=== PATIENT | female | born 1960 | race Caucasian/White ===

== ENCOUNTER 2017-03-03 23:37 | Inpatient (IN) ==
[2017-03-03] MEDS ORDERED: NS 2,000 ML ONE (23:49)
[2017-03-03] MEDS ORDERED: ASPIRIN PO STA (23:54)
[2017-03-03] MEDS ORDERED: ASPIRIN ONE (23:56)
[2017-03-03] MEDS ORDERED: NS 1,000 ML IV ONE (23:56)
[2017-03-04 00:05] LABS: MANUAL DIFF NEEDED? NO
[2017-03-04 00:11] LABS: BASO% 0.2 % (0.0-0.8); EOS# 0.11 X1000 (0.0-0.7); EOS% 0.8 % (0.0-10.0); HEMATOCRIT 39.5 % (37.0-47.0); HEMOGLOBIN 13.1 g/dL (12.0-16.0); IMM GRAN# 0.04 X1000 (0.0-0.04); IMM GRAN% 0.3 % (0.0-0.5); LYMPH# 2.52 X1000 (1.2-3.4); LYMPH% 19.3 % (20.5-51.1); MCH 27.3 PG (27-31); MCHC 33.2 g/dL (33-37); MCV 82.3 FL (81-99); MONO# 0.87 X1000 (0.11-0.59); MONO% 6.7 % (1.7-9.3); MPV 10.4 FL (7.4-10.4); NEUT% 72.7 % (42.2-75.2); PLT 408 X1000 (130-400)
[2017-03-04 00:29] LABS: AGAP 14; ALBUMIN 3.9 g/dL (3.5-5.0); ALKALINE PHOSPHATASE 66 U/L (32-104); BUN 21 mg/dL (8-22); CALCIUM 9.3 mg/dL (8.8-10.2); CHLORIDE 100 mmol/L (98-107); CK PROFILE 36 U/L (24-173); COSMO 277; GOT 21 U/L (10-30); GPT 13 U/L (10-36); INR 1.05 (0.86-1.15); MAGNESIUM 2.1 mg/dL (1.5-2.7); POTASSIUM 3.2 mmol/L (3.5-5.1); SODIUM 136 mmol/L (136-145); TCO2 22 mmol/L (25-35); TOTAL PROTEIN 6.8 g/dL (6.3-8.3)
[2017-03-04 00:30] LABS: PTT PL 30.6 Seconds (22.6-43.9)
--- NOTE | 2017-03-04 01:21 | EKG Report ---
Test Performed on : 03/03/2017 11:52:51 PM Test Reason : CHEST PAIN Blood Pressure : / mmHG Vent. Rate : 087 BPM Atrial Rate : 087 BPM P-R Int : 132 ms QRS Dur : 112 ms QT Int : 410 ms P-R-T Axes : 054 -29 042 degrees QTc Int : 493 ms Normal sinus rhythm. Minimal voltage criteria for LVH, may be normal variant Prolonged QT Abnormal ECG When compared with ECG of 03-MAR-2017 23:43, (Unconfirmed) No significant change was found Unconfirmed Result
--- NOTE | 2017-03-04 01:21 | EKG Report ---
Test Performed on : 03/03/2017 11:43:17 PM Test Reason : chest pain Blood Pressure : / mmHG Vent. Rate : 083 BPM Atrial Rate : 083 BPM P-R Int : 134 ms QRS Dur : 110 ms QT Int : 412 ms P-R-T Axes : 047 -35 016 degrees QTc Int : 484 ms Normal sinus rhythm. Left axis deviation Voltage criteria for left ventricular hypertrophy Cannot rule out Inferior infarct , age undetermined Abnormal ECG No previous ECGs available Unconfirmed Result
--- NOTE | 2017-03-04 04:47 | EKG Report ---
Test Performed on : 03/04/2017 01:58:35 AM Test Reason : chest pain Blood Pressure : / mmHG Vent. Rate : 081 BPM Atrial Rate : 081 BPM P-R Int : 144 ms QRS Dur : 118 ms QT Int : 418 ms P-R-T Axes : 054 -25 032 degrees QTc Int : 485 ms Sinus rhythm. with occasional premature ventricular complexes. Left ventricular hypertrophy with QRS widening Prolonged QT Abnormal ECG When compared with ECG of 03-MAR-2017 23:52, (Unconfirmed) premature ventricular complexes. are now present Unconfirmed Result
--- NOTE | 2017-03-04 06:14 | EKG Report ---
Test Performed on : 03/04/2017 05:48:04 AM Test Reason : chest pain Blood Pressure : / mmHG Vent. Rate : 079 BPM Atrial Rate : 079 BPM P-R Int : 142 ms QRS Dur : 118 ms QT Int : 424 ms P-R-T Axes : 049 -29 018 degrees QTc Int : 486 ms Normal sinus rhythm. Left ventricular hypertrophy with QRS widening Prolonged QT Abnormal ECG When compared with ECG of 04-MAR-2017 01:58, (Unconfirmed) premature ventricular complexes. are no longer present Unconfirmed Result
[2017-03-04] MEDS ORDERED: NS 1,000 ML IV ONE (06:16)
--- NOTE | 2017-03-04 09:06 | Diag Imaging Result Document ---
PROCEDURE NAME: CHEST-PORTABLE - 03/03/2017 AP PORTABLE CHEST, 03/04/2017 AT 1208 HOURS: FINDINGS: The inspiration is less optimal than on 03/06/2016. Otherwise, there has been no significant change. IMPRESSION: Stable chest.
[2017-03-04] MEDS ORDERED: LEXISCAN ONE (15:24)
--- NOTE | 2017-03-04 16:21 | HISTORY AND PHYSICAL ---
CHIEF COMPLAINT: Epigastric pain radiating to her back. BRIEFLY: This is a 56-year-old female who was in her usual state of health and developed sudden onset discomfort mostly in her right chest and right upper quadrant. She was evaluated in the ER. She also had some transient hypotension. Initial blood pressures were in the 60s when she 1st got to the ER which was right before midnight. She had an episode of syncope. She could not keep herself up. Her abdominal discomfort was associated with nausea and vomiting. She had some loose stools yesterday as well. Her blood pressure improved with IV fluids and has sustained it. She has had a cardiac workup including a stress test and chest CT. 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 Currently chest pain-free. The patient's pain was described as sharp, right side of the chest, nonradiating. PAST MEDICAL HISTORY: 1. Asthma. 2. Hypertension. 3. Arthritis. 4. Glaucoma. 5. 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 PAST SURGICAL HISTORY: 1. Hysterectomy. 2. Tonsillectomy. 3. Cholecystectomy. 4. Lung biopsy. 5. Skin grafts. SOCIAL HISTORY: No tobacco or ethanol. FAMILY: Positive for brother and father with cardiac disease but no CAD. It sounded like more it was atrial fibrillation. ALLERGIES: Azithromycin. MEDICATION: List is being compiled but she is just really on Wellbutrin and glaucoma treatment. REVIEW OF SYSTEMS: Reviewed x10 systems and is otherwise negative. PHYSICAL EXAMINATION: VITAL SIGNS: Blood pressure was 108/90, heart rate 82, respiratory rate 22, temperature 98.6 degrees, 97% on 2 L. GENERAL: A well-developed female, in no acute distress. HEAD: Normocephalic, atraumatic. EYES: Pupils equal, round, reactive to light. Extraocular movements were intact. EAR/NOSE/THROAT: Moist mucous membranes. NECK: Supple. CARDIOVASCULAR EXAM: Regular rate and rhythm. No murmurs, gallops, or rubs. PULMONARY: Bilateral breath sounds. Clear to auscultation. GI: Soft, nontender, nondistended. Bowel sounds are positive. EXTREMITIES: No clubbing or cyanosis. LYMPHATICS: No peripheral edema. NEUROLOGICAL: Nonfocal. LABORATORY DATA: White count 13. Potassium 3.2. Two troponins were negative. The patient is stabilized. Laboratory data: White count normal. PROBLEM LIST: Chest pain. This 56-year-old female presenting with syncope, hypotension and chest pain. 1. Hypotension. May have been related to a nausea vomiting episode, dehydration, possible vasovagal. She is in the process of getting a syncope workup. Her blood pressure is stabilized with hydration. We will continue to monitor. 2. Chest pain is atypical. She has had a chest CT. D-dimer was actually negative, 2 troponins were negative. Stress test is pending. We will continue to follow and CT of the thorax, I am waiting on the final report, showed some ectasia of her aorta but no dissection or significant aneurysm or other pathology. We will pursue an echo as part of her syncope, hypotension workup and observe for the next 24 hours. 3. Hypokalemia. Will supplement and follow. 4. Disposition pending multiple other issues. cc: Sae Marquez MD
[2017-03-04] MEDS: NS 1,000 ML IV SCH (16:42)
[2017-03-04] MEDS ORDERED: POTASSIUM CHLORIDE 20 MEQ/SWI 20 MEQ/100 ML IVPB IV SCH (16:45)
[2017-03-04] MEDS ORDERED: TYLENOL PO PRN (17:24)
[2017-03-04] MEDS ORDERED: ZOFRAN IV PRN (18:52)
[2017-03-04] MEDS ORDERED: KLOR-CON PO ONE (19:03)
[2017-03-04] MEDS: PRED FORTE 1% OPH SUSPENSION BOTH EYES SCH ×2 (20:09→20:20)
[2017-03-04 21:32] LABS: BILIRUBIN URINE NEGATIVE (NEGATIVE); CLARITY CLEAR (CLEAR); COLOR YELLOW; GLUCOSE URINE NEGATIVE (NEGATIVE); SP GRAVITY URINE 1.015; URINE EPITHELIAL CELLS <10 /HPF (<10); URINE SOURCE CLEAN CATCH; URINE WBC <10 /HPF (<10)
[2017-03-04 21:33] LABS: BLOOD URINE 3+ (NEGATIVE); LEUKOCYTES URINE TRACE (NEGATIVE); NITRITE URINE NEGATIVE (NEGATIVE); PROTEIN URINE TRACE mg/dL (NEGATIVE); URINE CULTURE PL NEEDED? YES; UROBILINOGEN URINE NORMAL
[2017-03-05] MEDS: NS 1,000 ML IV SCH ×4 (00:10→23:38)
[2017-03-05 06:33] LABS: HEMATOCRIT 38.2 % (37.0-47.0); HEMOGLOBIN 12.3 g/dL (12.0-16.0); MCH 27.4 PG (27-31); MCHC 32.2 g/dL (33-37); MCV 85.1 FL (81-99); MPV 10.7 FL (7.4-10.4); RBC 4.49 XMIL (4.2-5.4)
[2017-03-05 07:16] LABS: AGAP 9; BUN 14 mg/dL (8-22); CALCIUM 8.5 mg/dL (8.8-10.2); CHLORIDE 110 mmol/L (98-107); COSMO 284; MAGNESIUM 2.2 mg/dL (1.5-2.7); POTASSIUM 3.7 mmol/L (3.5-5.1); SODIUM 143 mmol/L (136-145); TCO2 24 mmol/L (25-35)
[2017-03-05] MEDS: PRED FORTE 1% OPH SUSPENSION BOTH EYES SCH ×4 (08:39→23:37)
--- NOTE | 2017-03-05 08:56 | Diag Imaging Result Document ---
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 There is no evidence of dissection, however. There are calcified right paratracheal nodes. There is calcification in the right hilum as well. There is, otherwise, no evidence of significant adenopathy. There are no abnormal fluid collections. There is atelectasis or fibrosis present in the left costophrenic sulcus. There is a similar appearance anterolaterally in the right lower lobe. Postsurgical changes are present in the posterior right hemithorax. There is no evidence of pneumothorax. There are granulomata in the spleen. There is a splenule near the splenic hilus. IMPRESSION: Postsurgical and fibrotic changes as described. Granulomatous changes. 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
[2017-03-05] MEDS: WELLBUTRIN XL PO SCH ×2 (08:57→20:25)
[2017-03-05] MEDS ORDERED: MIRALAX PO ONE (08:58)
[2017-03-05] MEDS ORDERED: LACTULOSE PO PRN (12:38)
[2017-03-05] MEDS ORDERED: SODIUM CHLORIDE 0.9% INJ SCH (12:45)
[2017-03-05] MEDS ORDERED: PROTONIX IV SCH (12:45)
[2017-03-05] MEDS: CARAFATE LIQUID PO SCH ×2 (13:13→20:25)
[2017-03-05] MEDS: MIRALAX PO SCH (13:14)
--- NOTE | 2017-03-05 13:17 | PROGRESS NOTE ---
DATE: 03/05/2017 SUBJECTIVE: Ms. George got admitted yesterday because of acute onset of epigastric pain associated with nausea and vomiting. According to Ms. George the pain was severe, was about 8/10, was intermittent, and was sometimes squeezing in her epigastrium which radiated to both rib cages. When she presented to the emergency department she was hypotensive. She was given IV fluid resuscitation. Blood pressure is now normal. OBJECTIVE: Vital signs: Blood pressure is 141/70, pulse of 79, respiration is 16, temperature is 98.2 degrees. General: Ms. George is a 56-year-old female. She was in bed. She did not seem to be in any distress. HEENT: Mucosa is pink and moist. Anicteric. Acyanotic. Neck: Supple. Chest: Clear. Cardiovascular: Regular rate and rhythm. Abdomen: Soft. Mildly tender in the epigastrium. Bowel sounds are present. 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 There is no focal neurological deficit. LABORATORY DATA: CBC is reviewed and completely normal. Chemistry: Sodium is 143, potassium is 3.7, chloride is 110, bicarb is 24. TSH is 1.51. CT scan of the chest which was done yesterday showed postsurgical and fibrotic changes as described. Granulomatous changes. Mild ectasia of the ascending aorta without evidence of dissection. Multiple EKGs have been done and show no ST-segment changes. Troponins have all been negative 3 times. The patient has had a stress test done. We are still pending the official report on that. ASSESSMENT: 1. Transient hypotension. This has been resolved. We think it is related to volume depletion from nausea and vomiting. 2. Epigastric pain. This seems atypical for a female patient. A stress test has been done. We are still pending the official report. I think this is probably related more to a GI pathology. We will therefore start the patient on PPI and Carafate and I will advise her to follow up with GI on an outpatient basis to rule out the possibility of an underlying ulcer. 3. Constipation. This was seen a little bit on the CT of the chest in the upper part of the abdomen. We will do echo KUB to have a better idea and we will also give the patient symptomatic management for the constipation. PLAN: So in general I think Ms. George is doing fine. We are going to continue with the hydration today. Will give her some bowel prep medication to get the bowels moving. Will are pending the Lexiscan results. Hopefully we will get her out tomorrow first thing in the morning. cc: Feliberto Murphy MD
--- NOTE | 2017-03-05 13:35 | Diag Imaging Result Document ---
PROCEDURE NAME: CARTER ABDOMEN - 03/05/2017 ABDOMEN SUPINE 2 VIEWS: FINDINGS: No free air beneath the diaphragm. No organomegaly. No bowel obstruction. No abnormal abdominal calcifications. Mild scoliosis with degenerative spine changes. IMPRESSION: No acute abnormality although there is minimal constipation.
--- NOTE | 2017-03-05 13:41 | Diag Imaging Result Document ---
PROCEDURE NAME: MYOCARDIAL PERF SCAN, STR/REST - 03/04/2017 PROCEDURE: Lexiscan Cardiolite stress test. Lexiscan was done per Dr. Centeno. Stress electrocardiogram was negative for ischemia. Please see detailed stress report dictated separately. 14.6 mCi of Cardiolite was injected for the rest phase; 45 millicuries of Cardiolite was injected for the stress phase. Gated SPECT images were obtained in standard views. Images revealed significant breast or chest wall attenuation. There is low to moderate sized fixed defect in the left ventricular apex with normal wall motion. This could represent attenuation defect. Low probability of scar. Would recommend clinical correlation. There is no evidence of ischemia. CONCLUSIONS: 1. No evidence of ischemia. 2. There is small to moderate size, fixed defect in the left ventricular apex with normal wall motion. This is likely to represent attenuation defect. Low probability of scar. There is no ischemia. 3. Left ventricular ejection fraction 62%. Wall motion was normal. cc: MD Dillan Ramirez MD
[2017-03-05] MEDS: TYLENOL PO PRN ×2 (14:05→21:28)
--- NOTE | 2017-03-05 17:22 | ECHO REPORT ---
ORDER DATE: 03/05/2017 ECHOCARDIOGRAPHIC MEASUREMENTS: 1. Interventricular septum 0.8. 2. Left ventricular posterior wall 0.8. 3. Diastolic diameter 5. 4. Left atrium 3.9. 5. Aorta 3.4. SUMMARY OF 2-DIMENSIONAL IMAGIN. Aortic valve leaflets are trileaflet. Pulmonic valve was normal. Tricuspid valve was normal. Mitral valve was normal. 2. Normal left ventricular cavity size. Estimated ejection fraction of 60%. 3. Peak velocity across the aortic valve less than 2 m/sec. There is no aortic stenosis. There is trace aortic regurgitation. There is mild mitral regurgitation. Mild tricuspid regurgitation. Peak velocity across the tricuspid valve was 3.1 m/sec. Pulmonary artery systolic pressure of 48 mmHg. 4. There is no pericardial effusion or obvious intracardiac mass or thrombus seen. cc: MD Sae Ramirez MD
[2017-03-06] MEDS: CARAFATE LIQUID PO SCH ×2 (03:33→08:29)
[2017-03-06] MEDS: TYLENOL PO PRN ×2 (04:56→11:00)
[2017-03-06] MEDS: NS 1,000 ML IV SCH (07:56)
[2017-03-06 08:29] VITALS: BP 145/71
[2017-03-06] MEDS: MIRALAX PO SCH (08:29)
[2017-03-06] MEDS: WELLBUTRIN XL PO SCH (08:29)
[2017-03-06] MEDS: PRED FORTE 1% OPH SUSPENSION BOTH EYES SCH (08:31)
[2017-03-06] MEDS ORDERED: CARAFATE PO SCH (11:00)
--- NOTE | 2017-03-06 15:14 | DISCHARGE SUMMARY ---
ADMISSION DATE: 03/04/2017 DISCHARGE DATE: 03/06/2017 ADMISSION DIAGNOSES: 1. Hypotension. 2. Chest pain that was atypical. 3. Hypokalemia. DISCHARGE DIAGNOSES: 1. Transient hypotension, resolved. 2. Chest pain resolved. 3. Constipation. 4. Hypokalemia resolved. SUMMARY OF FINDINGS: This is a 56-year-old female who began having a sudden onset of discomfort in the right side of her chest and right upper quadrant. She was evaluated in the ER and was noted to have some transient hypotension, initial blood pressures were in the 60s when she 1st got to the ER and that was right before midnight on the day of arrival. She had an episode of syncope, had abdominal discomfort associated with nausea, vomiting and had some loose stool. Her blood pressure improved with IV fluids, and sustained. She had a myocardial perfusion scan that showed no evidence of ischemia. There was a small to moderate sized fixed defect in the left ventricle apex with normal wall motion that likely represents attenuation defect and low probability of scar, no ischemia and the left ventricular ejection fraction was 62% with normal wall motion. She had a CT of the chest that showed post surgical and fibrotic changes. Granulomatous changes and mild ectasias of the ascending thoracic aorta without evidence of dissection. She had an abdomen x-ray on 03/05/2017 that showed no acute abnormality except for minimal constipation. Her blood pressures resolved and this morning was noted to be 145/71, which has been her baseline since 03/04/2017 around 8 p.m. so it is felt that she can safely be discharged home today. DISCHARGE MEDICATIONS: Alphagan 0.2% ophthalmic solution to the right eyes, Wellbutrin 150 mg p.o. b.i.d., Cosopt ophthalmic solution, one drop to both eyes. Lactulose 30 mL p.o. daily p.r.n. Ilevro 1.7 mL to both eyes at bedtime, Prilosec 20 mg p.o. daily. PredForte 1% ophthalmic suspension 1 drop to both eyes 4 times a day and Carafate 1 g p.o. t.i.d. #90 with no refills. DISCHARGE INSTRUCTIONS: She was given the information for the [facility], the physician referral line to establish with a new primary care physician and she will also need to follow up with Dr. Dominguez from GI. All discharge instructions were reviewed with the patient and she verbalized understanding. TIME SPENT: Thirty-five minutes. Dictated by BLANKA Mitchell for Feliberto Murphy MD cc: BLANKA Mitchell MD
[2017-03-06] MEDS ORDERED: PATIENT'S OWN MED BOTH EYES SCH (21:00)
[2017-03-07] MEDS ORDERED: PRILOSEC PO SCH (07:00)
--- NOTE | 2017-03-19 18:12 | PROVIDER DOCUMENTATION ---
This chart was entered by Yulisa Fenton Scribe, acting as scribe for Dillan Centeno MD. HPI-Chest Pain <Jose Daniel Owen X - Last Filed: 03/04/17 07:43> - General Source: patient - History of Present Illness-CP Location: reports: substernal Chest Pain Radiation: reports: back Quality of Pain: reports: sharp, stabbing Severity in ED: moderate Onset/Duration: this evening Timing: still present Context/Activities at Onset: reports: none Modifying Factors: improves with: nothing Associated Symptoms: reports: diaphoresis, nausea, shortness of breath, vomiting Aspirin Treatment Today: 325 mg x 1, provided by ED Similar Symptoms Previously?: No Recently Seen Here or By Another Healthcare Provider: No <Dillan Centeno - Last Filed: 03/19/17 18:12> - General Chief Complaint: Chest Pain Stated Complaint: CHEST PAIN/SLURRED SPEECH Time Seen by Provider: 03/03/17 23:40 Allergies/Adverse Reactions: Patient Allergies Allergy/AdvReac Type Severity Reaction Status Date / Time azithromycin Allergy RASH Verified 03/18/17 19:45 Home Medications: Home Medication List Medication Instructions Recorded Confirmed Last Taken Type Bupropion X.l. [Wellbutrin Xl] 150 mg PO BID 09/24/16 03/04/17 03/03/17 17:00 History Brimonidine 0.2% Ophth Soln 1 drop RIGHT EYE 03/04/17 03/04/17 History [Alphagan 0.2% Ophth Soln] Dorzolamide/Timolol Ophth Soln 1 drop BOTH EYES 03/04/17 03/04/17 History [Cosopt Ophth Soln] Nepafenac [Ilevro] 1.7 ml BOTH EYES QHS 03/04/17 03/04/17 03/04/17 15:59 History Prednisolone 1% Oph Susp [Pred 1 drop BOTH EYES 4XDAY 03/04/17 03/04/17 History Forte 1% Oph Suspension] Lactulose 30 ml PO DAILY PRN PRN #1 udc 03/06/17 Unknown Rx Omeprazole [Prilosec] 20 mg PO DAILY@0700 #60 capsule 03/06/17 Unknown Rx Sucralfate [Carafate] 1 gm PO TID #90 tablet 03/06/17 Unknown Rx Tramadol [Ultram] 50 mg PO Q6H PRN PRN #14 tablet 03/18/17 Unknown Rx - History of Present Illness-CP Nature of Presenting Problem: 56 year old F presents to the ED with a cc of nausea, vomiting(multiple), and diarrhea(x1) with an onset of 1700. 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 Pt states that pain is intermittent and pt states that she is short of breath and diaphoretic when the pain starts. Pt states that she is still nauseated (Yulisa Fenton) 56 year old F presents to the ED with a cc of nausea, vomiting(multiple), and diarrhea(x1) with an onset of 1700. 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 Pt states that pain is intermittent and pt states that she is short of breath and diaphoretic when the pain starts. Pt states that she is still nauseated (Dillan Centeno) Review of Systems - Adult - REVIEW OF SYSTEMS - ADULT Constitutional: reports: no symptoms reported <Jose Daniel Owen - Last Filed: 03/04/17 07:43> - REVIEW OF SYSTEMS - ADULT Constitutional: denies: chills, fever Eyes: reports: no symptoms reported Ears, Nose, Mouth & Throat: reports: no symptoms reported Cardiovascular: reports: chest pain. denies: palpitations Respiratory: reports: shortness of breath. denies: cough Gastrointestinal: reports: diarrhea, nausea, vomiting Genitourinary: reports: no symptoms reported Musculoskeletal: reports: no symptoms reported Integumentary: reports: no symptoms reported Neurological: reports: no symptoms reported Psychiatric: reports: no symptoms reported Endocrine: reports: no symptoms reported Hematologic/Lymphatic: reports: no symptoms reported Allergic/Immunologic: reports: no symptoms reported All Other Systems: Reviewed and Negative <Dillan Centeno - Last Filed: 03/19/17 18:12> Past History - Adult - PAST MEDICAL HISTORY-ADULT Review of Records: reports: Nursing Assessment Review, Medications Reviewed Major Childhood Illnesses: reports: denies history Cardiovascular: reports: HTN Respiratory: reports: denies history Gastrointestinal: reports: denies history Obstetrical/Gynecological: reports: denies history Genitourinary: reports: denies history Musculoskeletal: reports: denies history Neurological: reports: denies history Endocrine/Immune: reports: denies history Other Conditions: reports: cataract/glaucoma - PRIOR SURGERIES/PROCEDURES Surgical/Procedure History: reports: other (retinal sx right eye) - IMMUNIZATION STATUS Childhood Immunizations: See Nurse Assessment Flu Vaccine: See Nurse Assessment - FAMILY HISTORY Family History: reviewed, not pertinent - SOCIAL HISTORY Smoking: non-smoker Substance Use: none/never Alcohol Use Frequency: occasionally <Dillan Centeno - Last Filed: 03/19/17 18:12> Physical Exam-General - PHYSICAL EXAM-ADULT Initial Vital Signs Reviewed: Yes - CONSTITUTIONAL General Appearance: alert, mild distress - NECK Neck: negative: carotid bruit - RESPIRATORY Respiratory: chest non-tender, lungs clear, normal breath sounds - CARDIOVASCULAR Cardiovascular: normal peripheral pulses, regular rate, rhythm, no edema - GASTROINTESTINAL (ABDOMEN) Abdominal Exam: non tender, soft - MUSCULOSKELETAL Extremity: normal inspection, no pedal edema - SKIN Integumentary: normal color, normal turgor, warm/dry - PSYCHIATRIC Psych/Mental Status: normal mood/affect, normal thought content, normal thought process, oriented x 3 <Dillan Centeno - Last Filed: 03/19/17 18:12> Progress - PLAN OF CARE/RESULTS Result Diagrams: 03/03/17 23:58 03/03/17 23:58 - CONSULTS/PCP/HOSPITALIST Notification Time Discussed: 07:43 Reason/Comments: Admit to Dr. Murphy Consult Disposition: Admit <BraydenJose Daniel Watkins - Last Filed: 03/04/17 07:43> - PLAN OF CARE/RESULTS Result Diagrams: 03/05/17 05:15 03/05/17 05:15 - EKG 1 Time of EKG reading by physician:: 23:55 EKG Read and Signed by:: Dillan Centeno EKG Interpretation (*Must complete 3 of following elements*): Abnormal Rate: 83 Rhythm: sinus [place]: left QRS: LVH LA Interval: normal ST Wave: normal 2 Time of EKG reading by physician:: 23:55 EKG Read and Signed by:: Dillan Centeno EKG Interpretation (*Must complete 3 of following elements*): Abnormal Rate: 87 Rhythm: sinus [place]: normal QRS: LVH LA Interval: normal ST Wave: normal Prior EKG Comparison: unchanged from prior 3 Time of EKG reading by physician:: 02:05 EKG Read and Signed by:: Dillan Centeno EKG Interpretation (*Must complete 3 of following elements*): Abnormal Rate: 81 Rhythm: sinus [place]: left QRS: LVH LA Interval: normal ST Wave: normal Prior EKG Comparison: unchanged from prior 4 Time of EKG reading by physician:: 05:55 EKG Read and Signed by:: Dillan Centeno EKG Interpretation (*Must complete 3 of following elements*): Abnormal Rate: 79 Rhythm: sinus [place]: left QRS: LVH LA Interval: normal ST Wave: normal Prior EKG Comparison: unchanged from prior - XRAY 1 XRAY Study: Chest Impression: Abnormal (missing rib on right old poor inspiration) <Dillan Centeno - Last Filed: 03/19/17 18:12> - PLAN OF CARE/RESULTS Progress/Plan/Lab Results: Orders Category Date Time Status Admit - [facility] Routine AdmDCTranf 03/04/17 06:16 Ordered Activity - Up Ad Delma ORDERED Care 03/04/17 06:16 Active Call Admitting on Arrival AT ADMISSION Care 03/04/17 07:44 Active Cardiac Monitoring DIRECTED Care 03/03/17 23:54 Completed Oxygen Therapy- ED Nursing DIRECTED Care 03/03/17 23:54 Active Vital Signs Order Q 8-HR .ASSESS Care 03/04/17 06:16 Active Heart Healthy Diet Diet 03/04/17 13:32 Completed CHEST-PORTABLE [RAD] Stat Exams 03/03/17 23:[address] THORAX W/CONTRAST [CT] Stat Exams 03/04/17 10:30 Completed Odalis [MYOCARDIAL PERF SCAN, STR/REST] [NM] Stat Exams 03/04/17 06:19 Completed BASIC METABOLIC PANEL [CHEM] Routine Lab 03/05/17 05:15 Completed CBC WITH ELECTRONIC DIFF [HEME] Stat Lab 03/03/17 23:58 Completed CBC WITH NO DIFF [HEME] Routine Lab 03/05/17 05:15 Completed CK PROFILE [SP CHEM] Stat Lab 03/03/17 23:58 Completed CK PROFILE [SP CHEM] Stat Lab 03/04/17 02:10 Completed CK PROFILE [SP CHEM] Stat Lab 03/04/17 05:55 Completed COMPREHENSIVE METABOLIC PANEL [CHEM] Stat Lab 03/03/17 23:[address] D-D[address]ER PL [COAG] Stat Lab 03/03/17 23:[address]-D[address] [COAG] Stat Lab 03/04/17 01:09 Completed MAGNESIUM [CHEM] Routine Lab 03/05/17 05:15 Completed MAGNESIUM [CHEM] Stat Lab 03/03/17 23:58 Completed PRO B-NATRIURETIC PEPTIDE Stat Lab 03/03/17 23:58 Completed PROTIME WITH INR PL [COAG] Stat Lab 03/03/17 23:[address] [COAG] Stat Lab 03/03/17 23:58 Completed TROPONIN T Stat Lab 03/03/17 23:58 Completed TROPONIN T Stat Lab 03/04/17 02:10 Completed TROPONIN T Stat Lab 03/04/17 05:55 Completed TSH Routine Lab 03/05/17 05:15 Completed 0.9% Sodium Chloride Inj [Ns] 1,000 ml Med 03/04/17 15:52 Discontinued IV 125 mls/hr 0.9% Sodium Chloride Inj [Ns] 1,000 ml Med 03/03/17 23:56 Discontinued IV 999 mls/hr 0.9% Sodium Chloride Inj [Ns] 1,000 ml Med 03/04/17 06:16 Discontinued IV KVO 0.9% Sodium Chloride Inj [Ns] 2,000 ml Med 03/03/17 23:49 Discontinued .ROUTE As Directed Acetaminophen [Tylenol] Med 03/04/17 17:24 Discontinued 650 mg PO Q4H PRN PRN Acetaminophen [Tylenol] Med 03/04/17 18:52 Discontinued 650 mg PO Q6H PRN PRN Aspirin Med 03/03/17 23:56 Discontinued 325 mg .ROUTE .STK-MED ONE Aspirin Med 03/03/17 23:54 Discontinued 325 mg PO STAT STA Ondansetron [Zofran] Med 03/04/17 18:52 Discontinued 4 mg IV Q4H PRN PRN Potassium Chloride 20 Meq/Swi Med 03/04/17 16:45 Discontinued 20 meq in 100 ml IV Q2H Prednisolone 1% Oph Susp [Pred Forte 1% Oph Suspension] Med 03/04/17 18:52 Discontinued 0 ml BOTH EYES 4XDAY Regadenoson [Lexiscan] Med 03/04/17 15:24 Discontinued 0.4 mg .ROUTE .STK-MED ONE Telemetry [OM.EQ] Routine Oth 03/04/17 06:16 Active EKG [EKG] Stat Ther 03/03/17 23:54 Draft EKG [EKG] Stat Ther 03/03/17 23:58 Draft EKG [EKG] Stat Ther 03/04/17 01:59 Draft EKG [EKG] Stat Ther 03/04/17 05:49 Draft EKG, Stress Test [EKG] Routine Ther 03/04/17 Completed Echo Spec/Color Dop W/O Contra Routine Ther 03/05/17 15:51 Completed Transfer/Admit Order [TRANSFER] Routine Transfer 03/04/17 07:44 Completed Transfer/Admit Order [TRANSFER] Routine Transfer 03/04/17 15:53 Completed Departure - Departure Time of Disposition Decision: 06:44 Certified Medical Emergency: Emergent <BraydenStevenlilian Watkins - Last Filed: 03/04/17 07:43> - Departure Time of Disposition Decision: 06:44 Certified Medical Emergency: Emergent - Critical Care Note This patient required my direct personal management.: No <Dillan Centeno - Last Filed: 03/19/17 18:12> - Departure DIAGNOSIS: Chest pain Qualifiers: Chest pain type: unspecified Qualified Code(s): R07.9 - Chest pain, unspecified Hypotension Qualifiers: Hypotension type: unspecified hypotension type Qualified Code(s): I95.9 - Hypotension, unspecified Disposition: ADMITTED INPATIENT 09 Condition: Stable This chart was documented by the indicated scribe, (Yulisa Fenton Scribe) and accurately reflects the services I performed and decisions made by Taryn hope Michael L., MD, as attested by the provider's signature.
== END 2017-03-06 13:15 | disposition home or self-care (01) ==
LOC: P.ED 23:37 → P.EDIPHOLD 23:37
PROVIDERS: ATTEND Internal Medicine

== ENCOUNTER 2019-07-13 09:40 | Day surgery (SDC) ==
--- NOTE | 2019-07-07 08:29 | EKG Report ---
Test Performed on : 07/07/2019 08:18:41 AM Test Reason : PAT Blood Pressure : / mmHG Vent. Rate : 103 BPM Atrial Rate : 103 BPM P-R Int : 142 ms QRS Dur : 104 ms QT Int : 338 ms P-R-T Axes : 050 -34 024 degrees QTc Int : 442 ms Sinus tachycardia. Possible Left atrial enlargement Left axis deviation Left ventricular hypertrophy Possible Lateral infarct , age undetermined Abnormal ECG When compared with ECG of 11-MAR-2019 11:18, No significant change was found Confirmed by Jackelyn Gilliam MD ([id number]) on 07/08/2019 12:59:34 PM
[2019-07-07 09:01] LABS: URINE SOURCE CLEAN CATCH
[2019-07-07 09:11] LABS: BASO# 0.07 X1000 (0.0-0.2); BASO% 0.6 % (0.0-0.8); BILIRUBIN URINE NEGATIVE (NEGATIVE); BLOOD URINE SMALL (NEGATIVE); COLOR YELLOW; EOS# 0.11 X1000 (0.0-0.7); GLUCOSE URINE NEGATIVE (NEGATIVE); HEMATOCRIT 42.9 % (37.0-47.0); HEMOGLOBIN 14.1 g/dL (12.0-16.0); IMM GRAN# 0.03 X1000 (0.0-0.04); IMM GRAN% 0.3 % (0.0-0.5); KETONE URINE NEGATIVE (NEGATIVE); LEUKOCYTES URINE LARGE (NEGATIVE); LYMPH# 3.21 X1000 (1.2-3.4); LYMPH% 28.9 % (20.5-51.1); MCH 27.1 PG (27-31); MCHC 32.9 g/dL (33-37); MCV 82.3 FL (81-99); MONO# 0.94 X1000 (0.11-0.59); MONO% 8.5 % (1.7-9.3); MPV 10.1 FL (7.4-10.4); NEUT# 6.75 X1000 (1.4-6.5); NEUT% 60.7 % (42.2-75.2); NITRITE URINE NEGATIVE (NEGATIVE); PLT 390 X1000 (130-400); PROTEIN URINE NEGATIVE (NEGATIVE); RBC 5.21 XMIL (4.2-5.4); RDW 14.9 % (11.5-14.5); SP GRAVITY URINE 1.011; TURBIDITY URINE HAZY (CLEAR); UROBILINOGEN URINE NORMAL (NORMAL); WBC 11.11 X1000 (4.8-10.8)
[2019-07-07 09:13] LABS: UR EPITHELIAL CELLS <10 /HPF (<10); URINE BACTERIA NEGATIVE /HPF; URINE RBC <10 /HPF (<10); URINE WBC TNTC /HPF (<10)
[2019-07-07 09:17] LABS: HEMOGLOBIN A1C 5.2 % (4.8-6.0)
[2019-07-07 09:24] LABS: INR 1.05; PROTIME 13.8 Seconds (11.0-16.0)
[2019-07-07 09:25] LABS: PTT 32.6 Seconds (22.3-41.8)
[2019-07-07 09:28] LABS: AGAP 14; BUN 13 mg/dL (8-22); CALCIUM 9.8 mg/dL (8.8-10.2); CHLORIDE 104 mmol/L (98-107); COSMO 285; CREATININE 0.7 mg/dL (0.5-0.9); ESTIMATED GFR > 60; GLUCOSE 90 mg/dL (70-104); POTASSIUM 3.6 mmol/L (3.5-5.1); SODIUM 143 mmol/L (136-145); TCO2 25 mmol/L (25-35)
[2019-07-13] MEDS ORDERED: COLACE ONE (10:03)
[2019-07-13] MEDS ORDERED: REGLAN ONE (10:03)
[2019-07-13] MEDS ORDERED: PEPCID ONE (10:03)
[2019-07-13] MEDS ORDERED: LYRICA ONE (10:04)
[2019-07-13] MEDS ORDERED: LR 1,000 ML ONE (10:04)
[2019-07-13] MEDS ORDERED: CELEBREX ONE (10:04)
[2019-07-13] MEDS ORDERED: KEFZOL 1 GM/D5W 2 GM/100 ML IVPB ONE (10:04)
[2019-07-13] MEDS ORDERED: DIPRIVAN 1% 500 MG/50 ML BOTTLE ONE (10:47)
[2019-07-13] MEDS ORDERED: FENTANYL ONE (10:48)
[2019-07-13] MEDS ORDERED: ZOFRAN ONE ×2 (10:48→12:31)
[2019-07-13] MEDS ORDERED: OFIRMEV 1000 MG/ISOTONIC SOLN 0 MG/0 ML BOTTLE ONE (10:48)
[2019-07-13] MEDS ORDERED: VERSED ONE (10:48)
[2019-07-13] MEDS ORDERED: DECADRON ONE ×2 (10:48→12:31)
[2019-07-13] MEDS ORDERED: XYLOCAINE-MPF 2% ONE (10:48)
[2019-07-13] MEDS ORDERED: DURAMORPH ONE (11:12)
[2019-07-13] MEDS ORDERED: VANCOMYCIN ONE (11:12)
[2019-07-13] MEDS ORDERED: SENSORCAINE 0.25%/EPI 1:200,000 ONE (11:12)
[2019-07-13] MEDS ORDERED: TORADOL ONE (11:12)
[2019-07-13] MEDS ORDERED: SODIUM CHLORIDE 0.9% ONE (11:13)
[2019-07-13] MEDS ORDERED: CYKLOKAPRON 1,000 MG/NS 1,000 MG/100 ML IVPB ONE ×2 (11:13→11:46)
[2019-07-13] MEDS ORDERED: EXPAREL 1.3% ONE (11:14)
[2019-07-13] MEDS ORDERED: NEOSPORIN G.U. IRRIGANT ONE (11:14)
[2019-07-13] MEDS ORDERED: DILAUDID ONE (12:18)
[2019-07-13] MEDS ORDERED: OFIRMEV 1000 MG/ISOTONIC SOLN 1,000 MG/100 ML BOTTLE ONE (12:31)
[2019-07-13] MEDS ORDERED: EPHEDRINE ONE (12:31)
[2019-07-13 13:02] LABS: URINE SOURCE CATH
[2019-07-13 13:10] LABS: BILIRUBIN URINE NEGATIVE (NEGATIVE); BLOOD URINE NEGATIVE (NEGATIVE); COLOR YELLOW; GLUCOSE URINE NEGATIVE (NEGATIVE); KETONE URINE NEGATIVE (NEGATIVE); LEUKOCYTES URINE TRACE (NEGATIVE); NITRITE URINE NEGATIVE (NEGATIVE); PROTEIN URINE TRACE mg/dL (NEGATIVE); TURBIDITY URINE CLEAR (CLEAR); UROBILINOGEN URINE NORMAL (NORMAL)
[2019-07-13 13:11] LABS: UR EPITHELIAL CELLS >10 /HPF (<10); URINE BACTERIA NEGATIVE /HPF; URINE WBC <10 /HPF (<10)
--- NOTE | 2019-07-13 13:50 | OPERATIVE NOTE ---
PROCEDURE DATE: 07/13/2019 PREOPERATIVE DIAGNOSIS: Degenerative joint disease, right knee. POSTOPERATIVE DIAGNOSIS: Degenerative joint disease, right knee. PROCEDURE: Right total knee replacement. SURGEON: Selena Lewis MD. HEALTH PLAN ADVISOR: BLANKA Bill. Mr. Cordova was necessary for proper retraction and manipulation of the leg. ANESTHESIA: General. COMPLICATION: None. PROCEDURE IN DETAIL: This 58-year-old female presents for a right total knee replacement. Risks, benefits, and no guarantees were discussed and she is willing to proceed. She was taken to the operating room and satisfactory anesthesia obtained. The right leg was prepped and draped in the usual sterile fashion. A time-out was taken to confirm operative site, procedure, and patient. The leg was wrapped with an Esmarch and tourniquet inflated to 350 mmHg. A midline incision was made over the front of the knee followed by a quadriceps tendon-sparing arthrotomy. The patella was everted and resurfaced with freehand technique and sized to a 38 medialized dome patella. The drill paddle was used for the patella and the patella lug holes placed. With the patella subluxed laterally, the knee was flexed and an intramedullary hole made in the distal femur and the distal femoral cutting block secured in 5 degrees of valgus. Distal femoral resection was made. The femur was sized to a Code Blue size 5 femoral component. The 4 in 1 block was secured and the anterior, posterior, and chamfer cuts sequentially made. A notch was created for posterior stabilized design using provided notch guide. Any remaining osteophytes were debrided from the femur. The knee was flexed and a PCL retractor placed behind the tibia to protect the neurovascular bundle. The tibial cutting block was secured and the tibial resection made. Flexion and extension gaps were equal at roughly 6 mm space. The tibia was sized to a size 6 tibial tray. A trial reduction was performed with good range of motion and stability of the trial components. Trial implants were removed and the bony surfaces thoroughly irrigated with pulsatile lavage. Cement with a gram of vancomycin was then utilized to cement a size 6 tibial tray rotating platform design, followed by a size 5 right posterior stabilized standard width femoral component and a 38 medialized dome patella. While the cement cured, the joint capsule was injected with Exparel for pain management and a Hemovac drain placed. The arthrotomy was then copiously irrigated with irrigant. It was then closed over the drain with #1 Vicryl in the arthrotomy, 2-0 Vicryl in the subcutaneous and skin kathryn on the skin edges. Sterile dressings completed the closure and the patient was recovered from anesthesia and transferred to the recovery room in stable condition. No intraoperative complications were noted. Instrument count and sponge count was correct at the time of closure. cc: Chandrakant Lewis MD
[2019-07-13] MEDS ORDERED: NS 1,000 ML ONE (14:16)
[2019-07-13] MEDS: DILAUDID ONE ×4 (14:21→14:41)
--- NOTE | 2019-07-13 14:37 | Diag Imaging Result Doc PS360 ---
EXAM: KNEE 1-2 VIEWS-RIGHT 07/13/2019 HISTORY: post op TECHNIQUE: Right knee two views COMMENT: There is a total knee arthroplasty. The prosthesis appears to be intact and there is no evidence of acute fracture. There is lucency in the tibia beyond the level of the tibial prosthesis, which was not present at the time the previous radiographs of 02/23/2016. Presumably this is also postsurgical. IMPRESSION: Postsurgical changes. Electronically signed by Jamin Reveles 07/13/2019 2:34 PM
[2019-07-13] MEDS ORDERED: OXY IR ONE (14:59)
[2019-07-13] MEDS ORDERED: ZOFRAN ODT PO PRN (15:15)
[2019-07-13] MEDS ORDERED: MORPHINE IV PRN ×2 (15:15)
[2019-07-13] MEDS ORDERED: ZOFRAN IV PRN (15:15)
[2019-07-13] MEDS ORDERED: OXY IR PO PRN (15:15)
--- NOTE | 2019-07-13 16:26 | ORTHOPAEDICS PROGRESS NOTE ---
DATE: 07/13/2019 SUBJECTIVE DATA: Ms. George is seen postop day 0 of her right total knee arthroplasty. She reports she has a 4/10 pain level at this time. She states her knee does feel better. OBJECTIVE DATA: The bandages are clean and dry. There is good sensation to right lower extremity. There are good pedal pulses. There is negative Homans sign. Her vital signs are stable. ASSESSMENT: Degenerative joint disease, right knee, with total knee arthroplasty. PLAN: Plan on keeping Ms. George in the hospital overnight. We will check back on her in the morning and likely discharge if she is doing well. Dictated by BLANKA Bill for Chandrakant Lewis MD cc: BLANKA Bill MD
[2019-07-13] MEDS: TYLENOL PO SCH ×2 (17:20→23:59)
[2019-07-13] MEDS: ULTRAM PO SCH ×2 (17:21→23:58)
[2019-07-13] MEDS: OXY IR PO PRN (19:10)
[2019-07-13] MEDS ORDERED: COSOPT OPHTH SOLN BOTH EYES SCH (19:15)
[2019-07-13] MEDS: CELEBREX PO SCH (20:05)
[2019-07-13] MEDS: COLACE PO SCH (20:05)
[2019-07-13] MEDS: PERIDEX MT SCH (20:05)
[2019-07-13] MEDS: KEFZOL 2 GM/D5W 2 GM/50 ML IVPB IV SCH (20:06)
[2019-07-13] MEDS: MORPHINE IV PRN (20:06)
[2019-07-14] MEDS: BENADRYL PO PRN ×2 (00:33→05:24)
[2019-07-14] MEDS: OXY IR PO PRN ×5 (01:19→12:06)
[2019-07-14] MEDS: MORPHINE IV PRN (01:41)
[2019-07-14] MEDS: KEFZOL 2 GM/D5W 2 GM/50 ML IVPB IV SCH (05:22)
[2019-07-14] MEDS: ULTRAM PO SCH ×2 (05:23→12:07)
[2019-07-14] MEDS: TYLENOL PO SCH ×2 (05:24→12:11)
[2019-07-14 05:42] LABS: HEMATOCRIT 29.5 % (37.0-47.0); HEMOGLOBIN 9.5 g/dL (12.0-16.0)
[2019-07-14 06:02] LABS: AGAP 8; BUN 13 mg/dL (8-22); CALCIUM 8.2 mg/dL (8.8-10.2); CHLORIDE 105 mmol/L (98-107); COSMO 275; CREATININE 0.7 mg/dL (0.5-0.9); ESTIMATED GFR > 60; GLUCOSE 113 mg/dL (70-104); POTASSIUM 3.4 mmol/L (3.5-5.1); SODIUM 137 mmol/L (136-145); TCO2 24 mmol/L (25-35)
--- NOTE | 2019-07-14 07:44 | ORTHOPAEDICS PROGRESS NOTE ---
DATE: 07/14/2019 Ms. George is seen status post total knee replacement. Postoperatively, she is afebrile with stable vital signs. She is motor and sensory intact and no active bleeding. There is no signs of DVT. We will mobilize her today. She can be discharged home after working with therapy. We have ordered home health. She is to continue with her home medicines. She is on Xarelto for DVT prophylaxis and Bactrim for antibacterial prophylaxis and [place] 10 as needed for pain. She will follow up with us in 12 days or sooner for any worsening signs or symptoms. cc: Chandrakant Lewis MD
[2019-07-14] MEDS ORDERED: CYMBALTA PO SCH (09:00)
[2019-07-14] MEDS ORDERED: PEPCID PO SCH (09:00)
[2019-07-14] MEDS ORDERED: ENTOCORT EC PO SCH (09:00)
[2019-07-14] MEDS ORDERED: VICON-C PO SCH (09:00)
[2019-07-14] MEDS ORDERED: CENTRUM SILVER PO SCH (09:00)
[2019-07-14] MEDS ORDERED: ASPIRIN PO SCH (09:00)
[2019-07-14] MEDS ORDERED: VITAMIN D PO SCH (09:00)
[2019-07-14] MEDS ORDERED: LIALDA PO SCH (09:00)
[2019-07-14] MEDS ORDERED: METAMUCIL POWDER PACKET PO SCH (09:00)
[2019-07-14] MEDS ORDERED: BIOTIN PO SCH (09:00)
[2019-07-14] MEDS: CELEBREX PO SCH (09:27)
[2019-07-14] MEDS: PERIDEX MT SCH (09:28)
[2019-07-14] MEDS: COLACE PO SCH (09:28)
[2019-07-14 12:24] VITALS: BP 121/75
== END 2019-07-14 15:08 | disposition home or self-care (01) ==
LOC: OR 09:40 → 4N 09:40 → OR 07-14 15:08
PROVIDERS: ATTEND Orthopaedic Surgery Adult Reconstructive Orthopaedic Surgery

== ENCOUNTER 2019-09-14 05:47 | Day surgery (SDC) ==
[2019-09-07 10:51] LABS: URINE SOURCE CLEAN CATCH
[2019-09-07 10:54] LABS: BASO# 0.08 X1000 (0.0-0.2); BASO% 0.7 % (0.0-0.8); BILIRUBIN URINE NEGATIVE (NEGATIVE); BLOOD URINE SMALL (NEGATIVE); COLOR YELLOW; EOS# 0.11 X1000 (0.0-0.7); GLUCOSE URINE NEGATIVE (NEGATIVE); HEMATOCRIT 42.8 % (37.0-47.0); HEMOGLOBIN 13.4 g/dL (12.0-16.0); IMM GRAN# 0.03 X1000 (0.0-0.04); IMM GRAN% 0.3 % (0.0-0.5); KETONE URINE NEGATIVE (NEGATIVE); LEUKOCYTES URINE NEGATIVE (NEGATIVE); LYMPH# 3.06 X1000 (1.2-3.4); LYMPH% 27.7 % (20.5-51.1); MCH 26.4 PG (27-31); MCHC 31.3 g/dL (33-37); MCV 84.4 FL (81-99); MONO# 0.62 X1000 (0.11-0.59); MONO% 5.6 % (1.7-9.3); MPV 9.7 FL (7.4-10.4); NEUT# 7.16 X1000 (1.4-6.5); NEUT% 64.7 % (42.2-75.2); NITRITE URINE NEGATIVE (NEGATIVE); PH URINE 6.5; PLT 431 X1000 (130-400); PROTEIN URINE TRACE mg/dL (NEGATIVE); RBC 5.07 XMIL (4.2-5.4); RDW 14.4 % (11.5-14.5); SP GRAVITY URINE 1.017; TURBIDITY URINE CLEAR (CLEAR); UROBILINOGEN URINE NORMAL (NORMAL); WBC 11.06 X1000 (4.8-10.8)
[2019-09-07 10:55] LABS: UR EPITHELIAL CELLS <10 /HPF (<10); URINE BACTERIA NEGATIVE /HPF; URINE WBC <10 /HPF (<10)
[2019-09-07 11:01] LABS: INR 1.02; PROTIME 13.5 Seconds (11.0-16.0)
[2019-09-07 11:02] LABS: PTT 30.6 Seconds (22.3-41.8)
[2019-09-07 11:39] LABS: AGAP 14; BUN 11 mg/dL (8-22); CALCIUM 9.4 mg/dL (8.8-10.2); CHLORIDE 102 mmol/L (98-107); COSMO 285; CREATININE 0.7 mg/dL (0.5-0.9); ESTIMATED GFR > 60; GLUCOSE 101 mg/dL (70-104); POTASSIUM 3.3 mmol/L (3.5-5.1); SODIUM 143 mmol/L (136-145); TCO2 27 mmol/L (25-35)
[2019-09-14] MEDS ORDERED: REGLAN ONE (06:23)
[2019-09-14] MEDS ORDERED: CELEBREX ONE ×2 (06:23→06:25)
[2019-09-14] MEDS ORDERED: PEPCID ONE (06:23)
[2019-09-14] MEDS ORDERED: COLACE ONE (06:23)
[2019-09-14] MEDS ORDERED: LR 1,000 ML ONE (06:24)
[2019-09-14] MEDS ORDERED: KEFZOL 1 GM/D5W 2 GM/100 ML IVPB ONE (06:24)
[2019-09-14] MEDS ORDERED: SODIUM CHLORIDE 0.9% ONE (07:03)
[2019-09-14] MEDS ORDERED: TORADOL ONE (07:03)
[2019-09-14] MEDS ORDERED: CYKLOKAPRON 1,000 MG/NS 1,000 MG/100 ML IVPB ONE ×2 (07:03→07:04)
[2019-09-14] MEDS ORDERED: MARCAINE 0.25% PF ONE (07:03)
[2019-09-14] MEDS ORDERED: VANCOMYCIN ONE (07:03)
[2019-09-14] MEDS ORDERED: DURAMORPH ONE (07:03)
[2019-09-14] MEDS ORDERED: EXPAREL 1.3% ONE (07:04)
[2019-09-14] MEDS ORDERED: DIPRIVAN 1% 500 MG/50 ML BOTTLE ONE (07:11)
[2019-09-14] MEDS ORDERED: FENTANYL ONE (07:25)
[2019-09-14] MEDS ORDERED: VERSED ONE ×2 (07:25→08:08)
[2019-09-14] MEDS ORDERED: DIPRIVAN 1% ONE (07:42)
[2019-09-14] MEDS ORDERED: XYLOCAINE-MPF 1% ONE (08:05)
[2019-09-14] MEDS ORDERED: SODIUM CHLORIDE 0.9% 10 ML ONE (08:26)
[2019-09-14] MEDS ORDERED: NEO-SYNEPHRINE ONE (08:26)
[2019-09-14 08:40] LABS: URINE SOURCE CATH
[2019-09-14 08:44] LABS: BILIRUBIN URINE NEGATIVE (NEGATIVE); BLOOD URINE TRACE (NEGATIVE); COLOR YELLOW; GLUCOSE URINE NEGATIVE (NEGATIVE); KETONE URINE NEGATIVE (NEGATIVE); LEUKOCYTES URINE NEGATIVE (NEGATIVE); NITRITE URINE NEGATIVE (NEGATIVE); PROTEIN URINE 30 mg/dL (NEGATIVE); SP GRAVITY URINE 1.024; TURBIDITY URINE CLEAR (CLEAR); UROBILINOGEN URINE NORMAL (NORMAL)
[2019-09-14 08:46] LABS: UR EPITHELIAL CELLS <10 /HPF (<10); URINE BACTERIA NEGATIVE /HPF; URINE RBC <10 /HPF (<10); URINE WBC <10 /HPF (<10)
[2019-09-14] MEDS ORDERED: DECADRON ONE (08:46)
[2019-09-14] MEDS ORDERED: ZOFRAN ONE (08:46)
[2019-09-14] MEDS ORDERED: OFIRMEV 1000 MG/ISOTONIC SOLN 1,000 MG/100 ML BOTTLE ONE (08:46)
[2019-09-14] MEDS ORDERED: NS 1,000 ML ONE (09:45)
--- NOTE | 2019-09-14 10:09 | Diag Imaging Result Doc PS360 ---
KNEE 1-2 VIEWS-LEFT - 09/14/2019 INDICATION: l tka TECHNIQUE: Two views COMPARISON: None FINDINGS: There has been left total knee arthroplasty with patellar resurfacing. Alignment is anatomic. No hardware fracture or loosening. IMPRESSION: No complication. Electronically signed by Nathaniel Doll 09/14/2019 10:07 AM
--- NOTE | 2019-09-14 10:38 | OPERATIVE NOTE ---
PROCEDURE DATE: 09/14/2019 PREOPERATIVE DIAGNOSIS: Degenerative joint disease left knee. POSTOPERATIVE DIAGNOSIS: Degenerative joint disease left knee. PROCEDURE: Left total knee replacement. SURGEON: Selena Lewis MD. QA SOFTWARE TEST ENGINEER: BLANKA Bill. Mr. Cordova was necessary for proper retraction and manipulation of the leg during the case. ANESTHESIA: Spinal. COMPLICATIONS: None. PROCEDURE IN DETAIL: This 58-year-old female presents for a left knee replacement. Risks, benefits, and no guarantees were discussed, and she is willing to proceed. She was taken to the operating room and satisfactory anesthesia obtained. The left knee was prepped and draped in usual sterile fashion. A time-out was taken to confirm operative site, procedure, and patient. The leg was wrapped with an Esmarch and tourniquet inflated to 350 mmHg. A midline incision was made over the front of the left knee followed by a quad tendon sparing arthrotomy. The patella was everted and resurfaced with freehand technique and subluxed laterally. With the knee flexed, an intramedullary hole was made in the distal femur, and the distal femoral cutting block secured in 5 degrees of valgus. The distal femoral resection was then made, and the femur sized to a size 5 DePuy Attune femoral component. The 4 in 1 block was secured and the anterior, posterior, and chamfer cuts sequentially made followed by a notch for posterior stabilized design using provided notch guide. Any remaining osteophytes were taken off the femur, and the knee flexed and a PCL retractor placed behind the tibia to protect the neurovascular bundle. The tibial cutting block was secured, and the tibial resection made. Flexion and extension gaps were equal with a 6 mm spacer poly. The tibia was sized to a size 6 tibial tray. Trial reduction with trial components produced good range of motion and stability of the knee. The patella was sized to a 38 medialized dome patella. The drill holes were placed for the patellar implant, and the remaining femoral part and the trial components were removed. The bony surfaces were thoroughly irrigated with pulsatile lavage. Cement with a gram of vancomycin was utilized to cement a DePuy Attune size 6 rotating platform tibial tray, a size 5 standard width, left posterior stabilized femoral component, and a 38 medialized dome patella. Excess cement was removed with a [place] elevator. While the cement cured, the joint capsule was injected with Exparel for pain management and a Hemovac drain placed. After curing the cement, a size 5 and 6 mm thick posterior stabilized rotating platform poly was secured into the tibial tray, and the knee reduced. Final range of motion was 0 to 130 degrees with midline patellar tracking. The arthrotomy was copiously irrigated, and closed over the drain with #1 Vicryl in the arthrotomy, 2-0 Vicryl in the subcutaneous, and skin kathryn on the skin edges. Sterile dressings completed the closure. The patient was recovered from anesthesia, and transferred to the recovery room in stable condition. No intraoperative complications were noted. Instrument count and sponge count was correct at the time of closure. cc: Chandrakant Lewis MD
[2019-09-14] MEDS ORDERED: ZOFRAN IV PRN (10:45)
[2019-09-14] MEDS ORDERED: ZOFRAN ODT PO PRN (10:45)
[2019-09-14] MEDS ORDERED: OXY IR PO PRN (10:45)
[2019-09-14] MEDS ORDERED: MORPHINE IV PRN ×3 (10:45)
[2019-09-14] MEDS: OXY IR PO PRN ×2 (11:56→20:53)
[2019-09-14] MEDS: NS 1,000 ML IV SCH (11:58)
[2019-09-14] MEDS ORDERED: FLU VACCINE IM ONE (13:38)
[2019-09-14] MEDS: TYLENOL PO SCH ×2 (15:38→20:54)
[2019-09-14] MEDS: KEFZOL 2 GM/D5W 2 GM/50 ML IVPB IV SCH (15:39)
[2019-09-14] MEDS: ULTRAM PO SCH ×2 (15:39→21:00)
[2019-09-14] MEDS: KLOR-CON PO SCH (18:08)
--- NOTE | 2019-09-14 18:31 | ORTHOPAEDICS PROGRESS NOTE ---
DATE: 09/14/2019 SUBJECTIVE: Ms. George is seen postoperative day zero after left total knee arthroplasty. She reports she is doing well at this time. She states she has been up walking with physical therapy without difficulty. She denies nausea or vomiting. She states her pain is 1/10 at this time. OBJECTIVE: There is good sensation in the left lower extremity. There are good pedal pulses. The bandages are clean and dry. There is negative Homans sign. Her vital signs have been stable. ASSESSMENT: Degenerative joint disease, left knee, with left total knee arthroplasty. PLAN: We will plan on keeping Ms. George in the [facility] for observation. We have changed her medications from aspirin to Xarelto 10 mg daily for DVT prophylaxis, due to her stomach upset. I have also given her 40 mEq of Klor-Con for her low potassium. It was 3.2. We will check back on her in the morning and see how she is doing. Dictated by BLANKA Bill for Chandrakant Lewis MD cc: BLANKA Bill MD
[2019-09-14] MEDS ORDERED: METAMUCIL PO PRN (20:33)
[2019-09-14] MEDS ORDERED: COSOPT OPHTH SOLN BOTH EYES SCH (20:45)
[2019-09-14] MEDS: CELEBREX PO SCH (20:52)
[2019-09-14] MEDS: PERIDEX MT SCH (20:53)
[2019-09-14] MEDS: COLACE PO SCH (20:54)
[2019-09-15] MEDS: NS 1,000 ML IV SCH (00:02)
[2019-09-15] MEDS: KEFZOL 2 GM/D5W 2 GM/50 ML IVPB IV SCH (00:02)
[2019-09-15] MEDS: ULTRAM PO SCH ×2 (03:13→09:01)
[2019-09-15] MEDS: TYLENOL PO SCH ×2 (03:14→08:56)
[2019-09-15] MEDS ORDERED: XARELTO PO SCH (06:00)
[2019-09-15 06:07] LABS: HEMATOCRIT 33.6 % (37.0-47.0); HEMOGLOBIN 10.5 g/dL (12.0-16.0)
[2019-09-15 06:22] LABS: AGAP 11; BUN 15 mg/dL (8-22); CALCIUM 8.1 mg/dL (8.8-10.2); CHLORIDE 104 mmol/L (98-107); COSMO 288; CREATININE 0.5 mg/dL (0.5-0.9); ESTIMATED GFR > 60; GLUCOSE 104 mg/dL (70-104); POTASSIUM 3.3 mmol/L (3.5-5.1); SODIUM 144 mmol/L (136-145); TCO2 29 mmol/L (25-35)
[2019-09-15] MEDS: OXY IR PO PRN ×2 (06:51→09:57)
[2019-09-15] MEDS ORDERED: VENTOLIN HFA INH SCH (07:30)
[2019-09-15 07:52] VITALS: BP 114/65
[2019-09-15] MEDS ORDERED: DOXYCYCLINE PO SCH (08:00)
[2019-09-15] MEDS ORDERED: ASPIRIN PO SCH (09:00)
[2019-09-15] MEDS ORDERED: CYMBALTA PO SCH (09:00)
[2019-09-15] MEDS ORDERED: VITAMIN D PO SCH (09:00)
[2019-09-15] MEDS ORDERED: VICON-C PO SCH (09:00)
[2019-09-15] MEDS ORDERED: PATIENT'S OWN MED PO SCH (09:00)
[2019-09-15] MEDS ORDERED: LIALDA PO SCH (09:00)
[2019-09-15] MEDS ORDERED: MUCINEX PO SCH (09:00)
[2019-09-15] MEDS ORDERED: PEPCID PO SCH (09:00)
[2019-09-15] MEDS ORDERED: CENTRUM SILVER PO SCH (09:00)
[2019-09-15] MEDS: PERIDEX MT SCH (09:01)
[2019-09-15] MEDS: COLACE PO SCH (09:01)
[2019-09-15] MEDS: KLOR-CON PO SCH (09:02)
[2019-09-15] MEDS: CELEBREX PO SCH (09:02)
--- NOTE | 2019-09-15 09:43 | ORTHOPAEDICS PROGRESS NOTE ---
DATE: 09/15/2019 SUBJECTIVE DATA: Ms. George is seen on postop day 1 for left total knee arthroplasty. She reports 0 pain at this time. She states she has been walking with physical therapy without difficulty. She reports she is ready to go home. She also states she wants to go directly to outpatient therapy. OBJECTIVE DATA: There is good sensation left lower extremity. The bandages are clean and dry. There is negative Candelario's sign. There is good pedal pulses. There is good capillary refill in the toes. Vital signs are stable. ASSESSMENT: Degenerative joint disease, left knee with left total knee arthroplasty. PLAN: We will plan on going ahead and send Ms. George home. I will send her home with some potassium daily for replacement. I will also place her on Xarelto 10 mg daily for DVT prophylaxis. I will place her on Bactrim DS for infection prevention. She has requested Neurontin and I wrote her prescription for that. Also gave her prescription for Phenergan for nausea. We wrote her [place] 10 mg for pain and a physical therapy note for outpatient therapy. She is to follow up in the office in about roughly 10 days for staple removal. We will check back on her then. Dictated by BLANKA Bill for Chandrakant Lewis MD cc: BLANKA Bill MD
== END 2019-09-15 11:32 | disposition home or self-care (01) ==
LOC: 4N 05:47 → OR 05:47
PROVIDERS: ATTEND Orthopaedic Surgery Adult Reconstructive Orthopaedic Surgery

== ENCOUNTER 2019-12-03 10:21 | Inpatient (IN) ==
[2019-12-03 10:54] LABS: BASO# 0.12 X1000 (0.0-0.2); BASO% 1.2 % (0.0-0.8); EOS# 0.24 X1000 (0.0-0.7); EOS% 2.4 % (0.0-10.0); HEMATOCRIT 39.2 % (37.0-47.0); HEMOGLOBIN 12.1 g/dL (12.0-16.0); IMM GRAN# 0.03 X1000 (0.0-0.04); IMM GRAN% 0.3 % (0.0-0.5); LYMPH# 3.38 X1000 (1.2-3.4); MCH 24.7 PG (27-31); MCHC 30.9 g/dL (33-37); MONO# 0.75 X1000 (0.11-0.59); MONO% 7.5 % (1.7-9.3); MPV 9.8 FL (7.4-10.4); NEUT# 5.43 X1000 (1.4-6.5); NEUT% 54.6 % (42.2-75.2); PLT 497 X1000 (130-400); RDW 16.3 % (11.5-14.5); WBC 9.95 X1000 (4.8-10.8)
[2019-12-03 11:09] LABS: AGAP 13; ALB/GLOB RATIO 1.3; ALKALINE PHOSPHATASE 85 U/L (32-104); AMYLASE 45 U/L (20-200); BUN 12 mg/dL (8-22); CALCIUM 9.5 mg/dL (8.8-10.2); CHLORIDE 104 mmol/L (98-107); COSMO 285; CREATININE 0.6 mg/dL (0.5-0.9); ESTIMATED GFR > 60; GLUCOSE 97 mg/dL (70-104); GOT 18 U/L (10-30); GPT 9 U/L (10-36); LIPASE 14 U/L (13-60); POTASSIUM 3.7 mmol/L (3.5-5.1); SODIUM 143 mmol/L (136-145); TCO2 26 mmol/L (25-35); TOTAL BILIRUBIN 0.37 mg/dL (0.20-1.00); TOTAL PROTEIN 7.1 g/dL (6.3-8.3)
[2019-12-03 11:30] LABS: URINE SOURCE CATH
[2019-12-03 11:36] LABS: BILIRUBIN URINE NEGATIVE (NEGATIVE); BLOOD URINE NEGATIVE (NEGATIVE); COLOR YELLOW; GLUCOSE URINE NEGATIVE (NEGATIVE); KETONE URINE TRACE mg/dL (NEGATIVE); LEUKOCYTES URINE MODERATE (NEGATIVE); NITRITE URINE NEGATIVE (NEGATIVE); PROTEIN URINE TRACE mg/dL (NEGATIVE); SP GRAVITY URINE 1.023; TURBIDITY URINE CLEAR (CLEAR); UROBILINOGEN URINE NORMAL (NORMAL)
[2019-12-03 11:37] LABS: UR EPITHELIAL CELLS <10 /HPF (<10); URINE BACTERIA NEGATIVE /HPF; URINE RBC <10 /HPF (<10)
--- NOTE | 2019-12-03 13:49 | Diag Imaging Result Doc PS360 ---
EXAM: CT ABD/PELVIS W/PO AND IV CON INDICATION: ?? rectovaginal fistula, hx of Crohn's TECHNIQUE: This exam was performed using automated exposure control, adjustment of mA or kV according to patient size, and/or use of iterative reconstruction technique. COMPARISON: 03/11/2019 FINDINGS: There has been a prior cholecystectomy. The liver, spleen, pancreas, and adrenal glands are essentially unremarkable. There are a couple of stable renal cysts on the right. The kidneys are essentially unremarkable, otherwise. There is moderate sigmoid colonic diverticulosis. There is a segment of the distal sigmoid colon that exhibits significant wall thickening and pericolic inflammatory stranding and there is an adjacent loop of small bowel exhibiting focal wall thickening. This has been seen on several prior studies and is probably related to Crohn's disease rather than diverticulitis given the recurrent nature at the same location. However, on the current study, the inflamed loop of colon appears to be adherent to the dome of the urinary bladder and there is gas within the lumen of the urinary bladder suggesting a colovesicular fistula that has occurred during the interval. There is no evidence of a rectovaginal fistula. There has been a prior hysterectomy. Aside from the second segment of the distal sigmoid colon and the adjacent thickened loop of small bowel, no other focal bowel wall thickening is identified. The remainder of the GI tract is essentially unremarkable. No free abdominal gas is identified. There is no evidence of acute osseous abnormality. IMPRESSION: Inflamed thickened segment of the distal sigmoid colon with an adjacent thickened loop of small bowel that is likely related to the patient's Crohn's disease. However, there is evidence of interval development of a colovesicular fistula. Electronically signed by Chandrakant Harp 12/03/2019 1:47 PM
[2019-12-03] MEDS ORDERED: PHENERGAN IV ONE (16:07)
[2019-12-03] MEDS ORDERED: SODIUM CHLORIDE 0.9% INJ ONE (16:07)
--- NOTE | 2019-12-03 17:50 | PROVIDER DOCUMENTATION ---
This chart was entered by Harriet Cole Scribe, acting as scribe for Kiran Billingsley MD. HPI-Abdominal Pain/GI Problem - General Chief Complaint: Abdominal Pain Stated Complaint: CHRONES DIESEASE FLARE UP Time Seen by Provider: 12/03/19 10:40 Source: patient Allergies/Adverse Reactions: Patient Allergies Allergy/AdvReac Type Severity Reaction Status Date / Time azithromycin Allergy RASH Verified 12/03/19 10:31 levofloxacin [From Levaquin] Allergy RASH Verified 12/03/19 10:31 meperidine [From Demerol] Allergy EDEMA Verified 12/03/19 10:31 pregabalin [From Lyrica] AdvReac Unknown Verified 12/03/19 10:31 Home Medications: Home Medication List Medication Instructions Recorded Confirmed Last Taken Type Dorzolamide HCl/Timolol Maleat 1 dose BOTH EYES DIRECTED 05/02/18 09/21/19 09/13/19 08:00 History [Cosopt Eye Drops] Biotin 1 dose PO DAILY 07/06/19 09/21/19 09/13/19 08:00 History Cholecalciferol (Vitamin D3) 2,000 unit PO DAILY 07/06/19 09/21/19 09/13/19 08:00 History [Vitamin D3] Mesalamine 2 tab PO DAILY 07/06/19 09/21/19 09/13/19 08:00 History Multivit-Min/Iron/Folic/Lutein 1 dose PO DAILY 07/06/19 09/21/19 09/13/19 08:00 History [Centrum Silver Women Tablet] Psyllium Seed [Metamucil] 1 dose PO PRN PRN 07/06/19 09/21/19 07/12/19 08:00 History 1 DOSE Vitamin B Complex 1 dose PO DAILY 07/06/19 09/21/19 09/13/19 08:00 History Albuterol Sulfate Inhaler 2 puff INH BID PRN 09/07/19 09/21/19 09/12/19 08:00 History [Ventolin Hfa] Duloxetine [Cymbalta] 60 mg PO DAILY 09/07/19 09/21/19 09/13/19 08:00 History Potassium Chloride E.r. [Klor-Con] 10 meq PO DAILY #30 tab 09/15/19 09/21/19 Unknown Rx Promethazine [Phenergan] 25 mg PO Q6H PRN PRN #20 tab 09/15/19 09/21/19 Unknown Rx Rivaroxaban [Xarelto] 10 mg PO DAILY #30 tab 09/15/19 09/21/19 Unknown Rx Sulfamethoxazole/Trimethoprim 1 ea PO BID #20 tab 09/15/19 09/21/19 Unknown Rx [Bactrim Ds Tablet] Gabapentin [Neurontin] 300 mg PO BID 09/21/19 09/21/19 Unknown History Oxycodone HCl/Acetaminophen 1 tab PO Q6H PRN 09/21/19 09/21/19 Unknown History [Percocet 10-325 mg Tablet] - History of Present Illness-ABD Nature of Presenting Problems: Pt is a 58 yof who presents to the ED w/ a cc of "feces exiting out of her vagina." pt states that it happened last friday and yesterday. Pt states that she has had chronic UTIs since and blood was found in her urine. Pt reports that she has inflammatory bowel disease. Pt reports a low grade fever, nausea, and vomiting. Pt denies any abd pain and does not present to the ED w/ any other complaints. Quality of Pain: reports: none Onset/Duration: reports: 1 week ago Timing: reports: still present Activities at Onset: reports: none Exposure to sick contacts?: No Modifying Factors: improves with: nothing Associated Symptoms: reports: dizziness, nausea, vomiting Last BM: unsure Dark Stools Present?: reports: none noticed Rectal Bleeding: reports: none Rectal Pain: reports: none Emesis Description: reports: none Bruising or Bleeding Gums?: No Similar Symptoms Previously?: Yes Recently seen or treated by another doctor?: Yes Review of Systems - Adult - REVIEW OF SYSTEMS - ADULT Constitutional: reports: see HPI, fever (low grade) Eyes: reports: no symptoms reported Ears, Nose, Mouth & Throat: reports: no symptoms reported Cardiovascular: reports: no symptoms reported Respiratory: reports: no symptoms reported Gastrointestinal: reports: see HPI, nausea, vomiting Genitourinary: reports: see HPI, frequent UTI's (reports feces exiting out of her vagina) Musculoskeletal: reports: no symptoms reported Integumentary: reports: no symptoms reported Neurological: reports: see HPI, dizziness/vertigo Psychiatric: reports: no symptoms reported Endocrine: reports: no symptoms reported Hematologic/Lymphatic: reports: no symptoms reported Allergic/Immunologic: reports: no symptoms reported All Other Systems: Reviewed and Negative Past History - Adult - PAST MEDICAL HISTORY-ADULT Review of Records: reports: Old Records Reviewed, Nursing Assessment Review, Medications Reviewed Major Childhood Illnesses: reports: denies history Cardiovascular: reports: HTN Respiratory: reports: denies history Gastrointestinal: reports: Crohn's Obstetrical/Gynecological: reports: denies history Genitourinary: reports: denies history Musculoskeletal: reports: denies history Neurological: reports: denies history Endocrine/Immune: reports: denies history Other Conditions: reports: cataract/glaucoma - PRIOR SURGERIES/PROCEDURES Surgical/Procedure History: reports: other (retinal sx right eye) - IMMUNIZATION STATUS Childhood Immunizations: See Nurse Assessment Flu Vaccine: See Nurse Assessment - FAMILY HISTORY Family History: reviewed, not pertinent - SOCIAL HISTORY Smoking: non-smoker Substance Use: denies Living Situation: family Physical Exam-General - PHYSICAL EXAM-ADULT Initial Vital Signs Reviewed: Yes - CONSTITUTIONAL General Appearance: alert, no apparent distress - EYES Eyes: PERRL/EOMI, pink conjunctivae - HEAD, EARS, NOSE, MOUTH & THROAT HENMT: normocephalic/atraumatic, moist mucous membranes - NECK Neck: non-tender, full range of motion, normal inspection - RESPIRATORY Respiratory: chest non-tender, lungs clear, normal breath sounds - CARDIOVASCULAR Cardiovascular: normal peripheral pulses, regular rate, rhythm - GASTROINTESTINAL (ABDOMEN) Abdominal Exam: normal bowel sounds, non tender, soft. negative: guarding, rebound - LYMPHATIC Lymphatic: no adenopathy - MUSCULOSKELETAL Back Exam: normal inspection Extremity: normal range of motion, non-tender, normal inspection - SKIN Integumentary: normal color, normal turgor, warm/dry - NEUROLOGIC Neurologic: grossly normal - PSYCHIATRIC Psych/Mental Status: normal mood/affect, normal thought content, normal thought process, oriented x 3 Progress - PLAN OF CARE/RESULTS Progress/Plan/Lab Results: Vital Signs - 8 hr 12/03/19 10:27 Temperature 98.3 F Pulse Rate 100 H Respiratory Rate 19 Blood Pressure 136/81 O2 Sat by Pulse Oximetry 95 Laboratory Results - last 24 hr 12/03/19 12/03/19 10:31 10:31 WBC 9.95 RBC 4.90 Hgb 12.1 Hct 39.2 MCV 80.0 L MCH 24.7 L MCHC 30.9 L RDW Std Deviation 16.3 H Plt Count 497 H MPV 9.8 Immature Gran % (Auto) 0.3 Neut % (Auto) 54.6 Lymph % (Auto) 34.0 [place] % (Auto) 7.5 Eos % (Auto) 2.4 Baso % (Auto) 1.2 H Immature Gran # (Auto) 0.03 Neut # (Auto) 5.43 Lymph # (Auto) 3.38 [place] # (Auto) 0.75 H Eos # (Auto) 0.24 Baso # (Auto) 0.12 Urine Source CLEAN CATCH Orders Category Date Time Status Saline Loc DIRECTED Care 12/03/19 10:33 Active NPO Diet 12/03/19 10:33 Active Abdomen [CT ABD/PELVIS W/PO AND IV CON] [CT] Stat Exams 12/03/19 10:52 Ordered AMYLASE [CHEM] Stat Lab 12/03/19 10:31 Received CBC WITH ELECTRONIC DIFF [HEME] Stat Lab 12/03/19 10:31 Completed COMPREHENSIVE METABOLIC PANEL [CHEM] Stat Lab 12/03/19 10:31 Received LIPASE [CHEM] Stat Lab 12/03/19 10:31 Received URINALYSIS W/POSS RFLX CULT [URINALYSIS] Stat Lab 12/03/19 10:31 Results Result Diagrams: 12/03/19 10:31 12/03/19 10:31 - REASSESSMENT Reassessment #2 Time Reassessed: 16:05 Status: unchanged (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 discussed w/ Dr. Whittaker on behalf of Dr. Orozco, who agreed w/ admission. Will notify hospitalist) - CT/MRI 1 CT Study: Abdomen, Pelvis Impression: Abnormal (EXAM: CT ABD/PELVIS W/PO AND IV CON INDICATION: ?? rectovaginal fistula, hx of Crohn's TECHNIQUE: This exam was performed using automated exposure control, adjustment of mA or kV according to patient size, and/or use of iterative reconstruction technique. COMPARISON: 03/11/2019 FINDINGS: There has been a prior cholecystectomy. The liver, spleen, pancreas, and adrenal glands are essentially unremarkable. There are a couple of stable renal cysts on the right. The kidneys are essentially unremarkable, otherwise. There is moderate sigmoid colonic diverticulosis. There is a segment of the distal sigmoid colon that exhibits significant wall thickening and pericolic inflammatory stranding and there is an adjacent loop of small bowel exhibiting focal wall thickening. This has been seen on several prior studies and is probably related to Crohn's disease rather than diverticulitis given the recurrent nature at the same location. However, on the current study, the inflamed loop of colon appears to be adherent to the dome of the urinary bladder and there is gas within the lumen of the urinary bladder suggesting a colovesicular fistula that has occurred during the interval. There is no evidence of a rectovaginal fistula. There has been a prior hysterectomy. Aside from the second segment of the distal sigmoid colon and the adjacent thickened loop of small bowel, no other focal bowel wall thickening is identified. The remainder of the GI tract is essentially unremarkable. No free abdominal gas is identified. There is no evidence of acute osseous abnormality. IMPRESSION: Inflamed thickened segment of the distal sigmoid colon with an adjacent thickened loop of small bowel that is likely related to the patient's Crohn's disease. However, there is evidence of interval development of a colovesicular fistula. Electronically signed by Chandrakant Harp 12/03/2019 1:47 PM) - CONSULTS/PCP/HOSPITALIST Notification #1 *Consult/PCP/Hospitalist*: Dr. Whittaker Time Discussed: 16:35 Reason/Comments: Discuss condition Consult Disposition: Admit ( suggested admission) #2 Consult: Dr. Whatley Time Discussed: 17:15 Reason/Comments: Discuss admission Consult Disposition: Admit (Accepts admission) Departure - Departure Date of Disposition Decision: 12/03/19 Time of Disposition Decision: 17:15 DIAGNOSIS: Inflammatory bowel disease, Closter-vesical fistula Disposition: ADMITTED INPATIENT 09 Certified Medical Emergency: Emergent Condition: Stable Referrals and Follow-Ups: Jordan Bansal MD [Primary Care Provider] - - Critical Care Note This patient required my direct & personal management of CC.: No Attestation - Physician/ SCOT Attestation Patient care was provided by Advanced Practice Provider:: No The physician spent face to face time with patient:: Yes Advanced Practice Provider documentation review:: Supervising physician onsite and consulted in the evaluation and care of this patient. The physician did have a face to face encounter with the patient. This chart was documented by the indicated scribe, (Harriet Cole Scribe) and accurately reflects the services I performed and decisions made by me, Kiran Billingsley MD, as attested by the provider's signature.
[2019-12-03] MEDS ORDERED: PHENERGAN IV PRN (20:04)
[2019-12-03] MEDS ORDERED: SODIUM CHLORIDE 0.9% INJ PRN (20:04)
[2019-12-03] MEDS ORDERED: FLAGYL 750 MG in NS 150 ML IV SCH (20:04)
[2019-12-03] MEDS ORDERED: ZOFRAN IV PRN (20:07)
[2019-12-03] MEDS ORDERED: NS 1,000 ML IV SCH (20:15)
[2019-12-03] MEDS ORDERED: SODIUM CHLORIDE 0.9% INJ SCH (20:15)
--- NOTE | 2019-12-03 22:02 | HISTORY AND PHYSICAL ---
PRIMARY CARE PROVIDER: Dr. Bansal. GASTROENTEROLOGY SPECIALIST: Dr. Dominguez. CHIEF COMPLAINT: Sharp abdominal pain to the right lower quadrant associated with some nausea, vomiting, low-grade fever at night, and feces in the vagina. HISTORY OF PRESENT ILLNESS: Ms. George is a 58-year-old, female, who carries a past medical history of Crohn's, frequent UTIs, hypertension, glaucoma, histoplasmosis, who reports a week ago, she had feces exit out of her vagina and she has been having frequent UTIs since , on and off antibiotics. She takes laxatives and Fleet enemas for her Crohn's disease. She does report a low-grade fever of 99 degrees at night, some nausea, vomiting, and lightheadedness, and some right lower quadrant abdominal pain that is sharp in nature and intermittent. Workup in the ED shows a normal white count. Abdomen and pelvis CT showed inflamed, thickened segment of the distal sigmoid colon with adjacent uptake in loop of small bowel that is likely related to the patient's Crohn's disease. However, there is evidence of interval development of a colovesicular fistula. She will be admitted with a General Surgery consult. We will start her on Zosyn and Flagyl, make her n.p.o. after midnight, continue with antiemetics, and further evaluation and treatment. PAST MEDICAL HISTORY: Hypertension, glaucoma, histoplasmosis, Crohn's disease, frequent UTIs. 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 FAMILY HISTORY: Reviewed and noncontributory. SOCIAL HISTORY: She lives with her . No tobacco, alcohol, or illicit drug use. ALLERGIES: Azithromycin, levofloxacin, Demerol, and Lyrica. MEDICATIONS: Home medications are being compiled. LABORATORY DATA: White count 9, hemoglobin and hematocrit 12 and 39, platelet count is 497,000. Sodium 143, potassium 3.7, BUN 12, creatinine 0.6, blood glucose is 97. Urinalysis is negative for bacteria, 10 to 20 WBCs, moderate leukocytes, trace ketones, trace protein. DIAGNOSTIC DATA: Abdomen and pelvis CT: Inflamed, thickened segment of the distal sigmoid colon with adjacent thickened loop of small bowel that is likely related to the patient's Crohn's disease. However, there is evidence of interval development of colovesicular fistula. REVIEW OF SYSTEMS: Low-grade fever at night of 99, nausea and vomiting, lightheadedness, frequent UTIs, pressure with urination, intermittent sharp right lower quadrant pain. No chest pain. No shortness of breath. No dysuria. Alternates between constipation and diarrhea with her Crohn's. PHYSICAL EXAMINATION: VITAL SIGNS: Temperature is 98.5 degrees, heart rate 95, respirations 18, blood pressure 157/88, O2 is 98% on room air. GENERAL: Ms. George is a pleasant, 58-year-old, female, who is lying in the bed in no acute distress. HEENT: Atraumatic, normocephalic. PERRL. NECK: Supple. Trachea midline. CARDIOVASCULAR: S1, S2 appreciated. No murmurs, gallops, rubs noted. RESPIRATORY: Lung sounds clear bilaterally. GASTROINTESTINAL: Soft, tenderness to the right lower quadrant. Bowel sounds in 4 quadrants. NEUROLOGIC: No focal deficits noted. ASSESSMENT AND PLAN: 1. Colovesicular fistula. She has noted stool coming out of her vagina over the past week. We have started her on Zosyn and Flagyl, consulted Dr. Whittaker with General Surgery. We will await his recommendations. We have gone ahead and made her n.p.o. after midnight. 2. Crohn's disease, now with a colovesicular fistula. She is followed by Dr. Dominguez. We will consult GI as well as to get their input. 3. Hypertension. We will continue home medications when reconciled. 4. Glaucoma. Aware. 5. Frequent urinary tract infections. Originally believed secondary to her Crohn's, now more than likely due to her colovesicular fistula. 6. Nausea and vomiting. We will continue with Phenergan. That seemed to work best for her. 7. Reported low-grade fevers. We will provide p.r.n. Tylenol. Further recommendations to follow physician evaluation, laboratory and diagnostic data. Dictated by BLANKA Galvez for Sammi Doyle MD cc: MD King Carmen MD Gregory S. Cheatham, MD Manish Arora, MD
[2019-12-03] MEDS: ZOSYN 3.375 GM in NS 50 ML IV SCH (22:59)
[2019-12-04] MEDS: FLAGYL 500 MG/NS 500 MG/100 ML IVPB IV SCH ×2 (00:08→06:12)
[2019-12-04] MEDS: ZOSYN 3.375 GM in NS 50 ML IV SCH ×2 (05:39→10:46)
[2019-12-04] MEDS: PROTONIX IV SCH ×2 (05:39→07:37)
[2019-12-04 06:53] LABS: BASO# 0.06 X1000 (0.0-0.2); BASO% 0.6 % (0.0-0.8); EOS# 0.21 X1000 (0.0-0.7); HEMATOCRIT 38.8 % (37.0-47.0); HEMOGLOBIN 12.1 g/dL (12.0-16.0); IMM GRAN# 0.02 X1000 (0.0-0.04); IMM GRAN% 0.2 % (0.0-0.5); LYMPH# 3.33 X1000 (1.2-3.4); LYMPH% 31.3 % (20.5-51.1); MCH 25.1 PG (27-31); MCHC 31.2 g/dL (33-37); MCV 80.3 FL (81-99); MONO# 0.81 X1000 (0.11-0.59); MONO% 7.6 % (1.7-9.3); MPV 9.7 FL (7.4-10.4); NEUT# 6.21 X1000 (1.4-6.5); NEUT% 58.3 % (42.2-75.2); PLT 493 X1000 (130-400); RBC 4.83 XMIL (4.2-5.4); RDW 16.4 % (11.5-14.5); WBC 10.64 X1000 (4.8-10.8)
[2019-12-04 07:21] LABS: AGAP 13; ALB/GLOB RATIO 1.3; ALBUMIN 3.9 g/dL (3.5-5.0); ALKALINE PHOSPHATASE 84 U/L (32-104); BUN 8 mg/dL (8-22); CHLORIDE 103 mmol/L (98-107); COSMO 283; CREATININE 0.5 mg/dL (0.5-0.9); ESTIMATED GFR > 60; GLUCOSE 96 mg/dL (70-104); GOT 17 U/L (10-30); GPT 11 U/L (10-36); POTASSIUM 3.5 mmol/L (3.5-5.1); SODIUM 143 mmol/L (136-145); TCO2 27 mmol/L (25-35); TOTAL BILIRUBIN 0.47 mg/dL (0.20-1.00); TOTAL PROTEIN 6.9 g/dL (6.3-8.3)
[2019-12-04 07:52] VITALS: BP 144/84
--- NOTE | 2019-12-04 10:41 | Diag Imaging Result Doc PS360 ---
EXAM: WRIST COMPLETE RIGHT INDICATION: pain TECHNIQUE: 3 views COMPARISON: 03/18/2017 FINDINGS: There is a small subcortical bone cyst associated with the lunate. There is no discrete fracture, dislocation, or significant intrinsic osseous lesion, otherwise. The visualized joint spaces are essentially unremarkable. There is mild soft tissue edema at the dorsum of the wrist. IMPRESSION: Suggestion of mild soft tissue edema but no definite acute osseous abnormality. Electronically signed by Chandrakant Harp 12/04/2019 10:39 AM
--- NOTE | 2019-12-04 13:51 | GENERAL SURGERY CONSULTATION ---
DATE: 12/04/2019 REQUESTING PHYSICIAN: Hospitalist. CONSULT REQUEST: Colovesicular fistula. HISTORY OF PRESENT ILLNESS: A 58-year-old female with longstanding Crohn's, who presented with sharp abdominal pain with nausea, vomiting, and low-grade fever. She apparently describes some feces in her vagina. She had a CT scan done in the emergency department that showed a colovesicular fistula. She is on Humira normally for her Crohn's who she sees Dr. Dominguez for. Apparently she has had it stopped recently for some recent orthopedic procedures. She does report pneumaturia. I was asked to weigh an opinion. She is currently doing okay but does have frequent urges to void. She also has what sounds like a history of a sigmoid stricture, likely secondary to Crohn's. PAST MEDICAL HISTORY: 1. History of Crohn's. 2. Hypertension. 3. Glaucoma. 4. Histoplasmosis. 5. Frequent urinary tract infections. PAST SURGICAL HISTORY: 1. 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 2. Hysterectomy. 3. Appendectomy. 4. Cholecystectomy. 5. Bilateral knee surgeries. FAMILY HISTORY: Reviewed with the patient and noncontributory. SOCIAL HISTORY: Lives with . Denies alcohol, tobacco, or illicit drugs. ALLERGIES: Full list reviewed. HOME MEDICATIONS: In MAR reviewed. REVIEW OF SYSTEMS: A full 14 systems reviewed and negative except as specified in HPI. PHYSICAL EXAMINATION: Vital Signs: Patient is currently afebrile. Her vital signs stable. General: No acute distress. HEENT: Normocephalic, atraumatic. Pupils equal, round, reactive to light. Mucous membranes moist. Oropharynx benign. Neck: Supple, trachea midline. Cardiovascular: Regular rate and rhythm. Lungs: Grossly clear. Abdomen: Soft. No peritoneal signs. Extremities: Moves all extremities. Neurologic: Grossly intact. Skin: No signs of jaundice. Vascular: All extremities perfused. LABORATORY: Reviewed from admission. White blood cell count is not abnormal. CT scan independently reviewed and radiology report reviewed. ASSESSMENT AND PLAN: A 58-year-old female with a colovesicular fistula. 1. Colovesicular fistula. At this time, I had a lengthy discussion with the patient. She will likely need a colonic resection and repair of the colovesicular fistula. It would be best if we could give her a bowel prep to try to clean her out that we would not have to give her an ostomy. Discussed with her that we likely could do it early in the week if she is willing. She may even consider going home and having this scheduled as an elective procedure but at this point we will continue to follow while she is in the hospital. 2. We will put her on a clear liquid diet for right now and if she wants to stay we will consider doing a bowel prep Friday. I will have to review the board Friday to see where I could potentially do her surgery but we will continue to follow. I appreciate the consult. cc: King Whittaker MD
== END 2019-12-04 11:18 | disposition home or self-care (01) | DRG 387 ==
LOC: ED 10:21 → 4N 10:22
PROVIDERS: ATTEND Internal Medicine

== ENCOUNTER 2019-12-09 05:24 | Inpatient (IN) ==
[2019-12-09] MEDS ORDERED: PEPCID ONE (08:28)
[2019-12-09] MEDS ORDERED: REGLAN ONE (08:28)
[2019-12-09] MEDS ORDERED: LR 1,000 ML ONE (08:28)
[2019-12-09] MEDS ORDERED: KEFZOL 1 GM/D5W 0 GM/0 ML IVPB ONE (08:28)
[2019-12-09] MEDS ORDERED: ENTEREG ONE (08:28)
[2019-12-09] MEDS ORDERED: VERSED ONE (09:18)
[2019-12-09] MEDS ORDERED: FENTANYL ONE (09:18)
[2019-12-09] MEDS ORDERED: DIPRIVAN 1% ONE (09:18)
[2019-12-09] MEDS ORDERED: MEFOXIN 2 GM/D5W 2 GM/50 ML IVPB ONE (09:26)
[2019-12-09] MEDS ORDERED: SODIUM CHLORIDE 0.9% 0 ML ONE (10:04)
[2019-12-09] MEDS ORDERED: EPHEDRINE ONE (10:04)
[2019-12-09] MEDS ORDERED: ALBUMIN 25% ONE (10:43)
[2019-12-09] MEDS ORDERED: MARCAINE 0.25% ONE (11:00)
[2019-12-09] MEDS ORDERED: DILAUDID ONE (11:56)
[2019-12-09 11:59] LABS: URINE SOURCE CATH
[2019-12-09 12:08] LABS: UR EPITHELIAL CELLS <10 /HPF (<10); URINE BACTERIA 1+ /HPF; URINE RBC TNTC /HPF (<10); URINE WBC TNTC /HPF (<10)
[2019-12-09 12:12] LABS: BILIRUBIN URINE NEGATIVE (NEGATIVE); BLOOD URINE LARGE (NEGATIVE); COLOR YELLOW; GLUCOSE URINE NEGATIVE (NEGATIVE); KETONE URINE 60 mg/dL (NEGATIVE); LEUKOCYTES URINE LARGE (NEGATIVE); NITRITE URINE NEGATIVE (NEGATIVE); PROTEIN URINE 100 mg/dL (NEGATIVE); SP GRAVITY URINE 1.025; TURBIDITY URINE TURBID (CLEAR); UROBILINOGEN URINE 2 mg/dL (NORMAL)
[2019-12-09] MEDS ORDERED: NEO-SYNEPHRINE ONE (12:33)
[2019-12-09] MEDS ORDERED: QUELICIN (DOSE) ONE (12:33)
[2019-12-09] MEDS ORDERED: OFIRMEV 1000 MG/ISOTONIC SOLN 1,000 MG/100 ML BOTTLE ONE (12:33)
[2019-12-09] MEDS ORDERED: ROBINUL ONE (12:33)
[2019-12-09] MEDS ORDERED: DECADRON ONE (12:33)
[2019-12-09] MEDS ORDERED: NEOSTIGMINE ONE (12:33)
[2019-12-09] MEDS ORDERED: SODIUM CHLORIDE 0.9% 10 ML ONE (12:33)
[2019-12-09] MEDS ORDERED: ZOFRAN ONE (12:33)
[2019-12-09] MEDS ORDERED: XYLOCAINE-MPF 2% ONE (12:33)
[2019-12-09] MEDS ORDERED: ZEMURON ONE (12:33)
[2019-12-09] MEDS ORDERED: AK-FLUOR ONE (13:04)
[2019-12-09] MEDS: DILAUDID ONE ×2 (14:22→14:23)
[2019-12-09] MEDS ORDERED: TORADOL ONE (14:22)
[2019-12-09] MEDS ORDERED: D5 1/2 NS + KCL 20 MEQ 1,000 ML ONE (14:35)
--- NOTE | 2019-12-09 15:49 | OPERATIVE NOTE ---
PROCEDURE DATE: 12/09/2019 PREOPERATIVE DIAGNOSES: 1. Colovesicular fistula. 2. History of Crohn's. 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 4. History of Crohn's. PROCEDURE: 1. Exploratory laparotomy. 2. Takedown of colovesicular fistula. 3. Renea's procedure (sigmoid resection with end colostomy). 4. Takedown of coloenteric fistula. 5. Takedown of colocolonic fistula. SURGEON: King Whittaker MD. ZONING ASSISTANT: 1. Luis Darby MD. Dr. Darby assisted with the entirety of the case. His presence was crucial for completion of the case. 2. Guy Barrett MD. Dr. Barrett came in to evaluate the ureter and the bladder. His presence was crucial to the evaluation of this. ANESTHESIA: General endotracheal. INTRAOPERATIVE FINDINGS: Densely inflamed bowel with essentially a fistula developing from the sigmoid colon to the ileum, to the ileocecal valve, and to the bladder, all densely inflamed and adherent. The ureter seemed perfuse. We did give fluorescein IV. I did not see any extravasation of the fluorescein intraoperatively. [place] that other major structures were intact. Her colon was too densely inflamed to safely put her back together. COMPLICATIONS: None at the time of dictation. ESTIMATED BLOOD LOSS: 100 mL. SPECIMEN REMOVED: Sigmoid colon. BRIEF HISTORY: A 58-year-old female with history of Crohn's who has been seen for coloenteric fistulas. She has subsequently developed a colovesicular fistula and has been getting persistent urinary tract infections. It was felt that she would benefit from a colectomy. The risks, benefits, and alternatives were discussed. Risks include, but not limited to, risk of anesthesia, risk of bleeding, risk of infection, risk of injuring other surrounding tissues in the ureter. All questions answered. DESCRIPTION OF PROCEDURE: After informed consent was obtained, patient brought to the operative theatre, transferred to the operating table, and placed in supine position. General endotracheal anesthesia was then performed without complication. A formal time-out was then performed, confirming patient, date, procedure. All were agreement. At that time attention was given to the abdomen. We made a standard midline incision to enter into the abdomen. She had previous adhesions that were densely attached to the abdominal wall from her previous midline incision. We were able to sharply enter into the abdomen. Once we got into the abdomen, we found a densely adherent segment of her sigmoid colon and her terminal ileum and her right colon and cecum stuck down to the peritoneum of the bladder. It took some time and meticulous dissection to free this up, but it was noted that we had both a fistula to the bladder, to the small bowel, and to the ileocecal valve. We took these down and isolated these. We then examined the area completely. We able identify the ureter. I did have an intraoperative consult with Dr. Barrett. We did give fluorescein and did not see any extravasation, as I was concerned that we were near where the ureter was and could have injured it on the right side, but I did not see any injury. I suspect that the bladder fistula had already spontaneously repaired because we did not see any drainage of the fluorescein in the intra-abdominal aspect after we had taken down the fistula. She did have a Toth catheter in place and we were able to feel it. The rectum was very inflamed and not amenable to a primary anastomosis. We therefore elected to do a Renea's procedure. We found an area in the sigmoid colon that was not amenable to bringing up for an ostomy and not particularly inflamed. We made a window in the mesentery. It was very thickened mesentery with creeping fat consistent with her history of Crohn's. We made a window, bovied through the mesentery, and used LigaSure to dissect out the mesentery. We fired a stapler across to bring the colostomy in. We then used the LigaSure to come down all the way down on the sigmoid colon and transected it at a spot that felt it was a little bit less inflamed. It was still inflamed enough that I will placed Vicryl stitches in the area. We again elected with significant discussion intraoperatively with Dr. Darby that putting her together would be high risk for leaking, so we therefore, elected to not do this part. We irrigated out the abdomen. We placed a drain from the right lower quadrant down to the rectum area. Again, we did not see an obvious bladder leak, but there was probably a small microscopic tear from the fistula, but again, it has healed spontaneously. We examined the bowel. The coloenteric fistula just needed to be repaired with a couple of stitches on the small bowel side and the terminal ileum colocolonic fistula was amenable to primary repair with interrupted silks. It seems like the lumen itself was not narrow too much, but she did have thickened bowel around it consistent with her known history of Crohn's, but we did not think that we needed to resect this area. We irrigated out the abdomen copiously. We then made a window in the rectus to bring up the colostomy that was 2 fingerbreadths wide. We were able to bring up an ostomy. We were able to close the fascia with a running loop PDS started on either side. Her fascia was very tenuous. We closed the skin with kathryn. We then matured the ostomy in standard fashion with Vicryl stitches. The patient tolerated the procedure well. She will be transferred to the floor. cc: King Whittaker MD
[2019-12-09] MEDS: MEFOXIN 2 GM/NS 2 GM/50 ML IVPB IV SCH (16:15)
[2019-12-09] MEDS: OFIRMEV 1000 MG/ISOTONIC SOLN 1,000 MG/100 ML BOTTLE IV SCH ×2 (16:16→21:58)
[2019-12-09] MEDS: MORPHINE INJ PRN ×2 (16:54→21:59)
[2019-12-09] MEDS: D5 1/2 NS + KCL 20 MEQ 1,000 ML IV SCH (16:57)
[2019-12-09] MEDS ORDERED: FLAGYL PO SCH (18:00)
[2019-12-09] MEDS: PERIDEX MT SCH (21:58)
[2019-12-09] MEDS: HEPARIN SUBQ SCH (21:59)
[2019-12-09] MEDS: FLAGYL PO SCH (21:59)
[2019-12-09] MEDS: ZOFRAN IV PRN (22:00)
--- NOTE | 2019-12-09 22:43 | CONSULTATION ---
DATE OF CONSULTATION: 12/09/2019 CHIEF COMPLAINT: This is a medical consultation to follow during hospitalization. HISTORY OF PRESENTING ILLNESS: This is a 58-year-old female who was a direct admit today to General Surgery with a preoperative diagnosis of Crohn disease and a colovesicular fistula. She had an exploratory laparotomy, takedown of the colovesicular fistula, a Renea's procedure with sigmoid resection with end-colostomy, takedown of coloenteric fistula and takedown of colocolonic fistula per Dr. Whittaker. She tolerated this procedure well. There was intraoperative consultation with Dr. Barrett also as there was concern that there was a ureteral fistula. The bladder fistula had spontaneously repaired and they did not see any drainage of the fluorescein in the intra-abdominal aspect. After they took down the fistula, a Toth catheter was placed. She tolerated the procedure well. Her urinalysis today did show negative nitrites, large leukocytes and 1+ bacteria and she has a history of frequent UTIs, history of hypertension, histoplasmosis, Crohn disease and glaucoma. So, we will follow this patient throughout the remainder of her hospitalization for medical management. PAST MEDICAL HISTORY: Hypertension, glaucoma, histoplasmosis, Crohn disease, and frequent UTIs. 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 FAMILY HISTORY: Reviewed and noncontributory. SOCIAL HISTORY: She currently lives with her . Denies any tobacco, alcohol or illicit drug use. ALLERGIES: To azithromycin, levofloxacin, meperidine and Pregabalin. HOME MEDICATIONS: She takes Mayela C 500 mg 1 p.o. daily, benazepril 10 mg p.o. daily, biotin 2500 mcg p.o. daily, vitamin D3 2000 units p.o. daily, Bentyl 10 mg p.o. t.i.d. before meals, Cosopt eyedrops 1 dose to both eyes as directed, Cymbalta 60 mg p.o. daily, Flagyl 500 mg p.o. q.8 hours, Centrum Silver 1 p.o. daily, ondansetron 4 mg p.o. p.r.n., vitamin B complex 1 p.o. daily and those will all be held at this time. LABORATORY DATA: Showed a urinalysis today that showed negative nitrites, large blood, large leukocytes, 1+ bacteria. REVIEW OF SYSTEMS: She denied any fever, chills, blurred vision, dizziness, chest pain, coughing, shortness of breath. She does have abdominal pain status post her surgery today. PHYSICAL EXAMINATION: Vital signs: On arrival she had a temperature of 98.1 degrees, pulse 98, respirations 17, blood pressure 138/95, saturating 100% on room air. General: This is a 58-year- old female who is lying in the bed and answers questions appropriately. HEENT: Normocephalic, atraumatic. Normal ENT inspection. Oropharynx and nares are clear. Eyes: Pupils are equal, round, reactive to light and accommodation. Extraocular movements are intact. Neck: Normal inspection. Normal range of motion. Lungs: Clear to auscultation bilaterally with equal lung expansion and chest wall movement. Heart: With regular rate and rhythm. No murmurs, rubs, or gallops. Abdomen: Soft. There is tenderness to palpation status post her surgery. She has a colostomy to the left quadrant. Bowel sounds are hypoactive. Musculoskeletal: She had 5/5 strength x4 extremities. Neurological: The cranial nerves 2-12 appear grossly intact. ASSESSMENT: 1. Status post exploratory laparotomy with sigmoid resection with end-colostomy and takedown of her colovesicular, coloenteric and colocolonic fistulas. 2. Urinary tract infection. 3. Hypertension. 4. Glaucoma. OUR PLAN: We are not going to make any changes at this time. We will continue with her clear liquid diet, physical therapy, pain management regimen. She is on cefoxitin 2 g IV q.8, D5 and a half with 20 of K at 75 mL an hour, heparin 5000 units subcutaneous q.8, morphine 2 to 10 mg IV q.4 hours p.r.n., tramadol 50 mg p.o. q.6 hours p.r.n. Wound Care was consulted. Physical Therapy was consulted. She has O2 p.r.n., incentive spirometry, indwelling Toth catheter. We will recheck a CBC, BMP in the a.m. Further orders after seen by consulting MD. We will follow this patient and appreciate the consult and throughout the remainder of her hospitalization. Dictated by BLANKA Mitchell for Nolberto Maldonado MD Addendum: Patient seen and examined by myself. Agree with BLANKA note. It reflects my assessment and plan. Patient is being admitted to hospital for sigmoid resection and end colostomy. Surgery has placed a consult for medical management. Will monitor patient closely. cc: BLANKA Mitchell MD Gregory S. Cheatham, MD MTDD
--- NOTE | 2019-12-09 23:00 | CONSULTATION ---
DATE OF CONSULTATION: 12/09/2019 REFERRING PHYSICIAN: King Whittaker MD REASON FOR CONSULTATION: Intraoperative consult. HISTORY OF PRESENT ILLNESS: This 58-year-old female has a history of Crohn disease. She was seen in the emergency room with feces in the vaginal area. A CT scan of the abdomen and pelvis with IV and oral contrast revealed an inflamed, thickened sigmoid colon with an adjacent thickened loop of small bowel, all lying on top of the bladder. There was no direct connection to the bladder seen; however, there were gas-like areas in the bladder. There was no connection to the vaginal cavity visualized. She is undergoing exploratory laparotomy and had the sigmoid colon resected, as well as small bowel moved out of the way. There was a question of injury to the bladder as well as the right distal ureter. PROCEDURE NOTE: There was thickened peritoneum where the suspected injury was located, where the bowel was removed from the area of the bladder. The surgeon's hand was placed deep in the pelvis and the Toth catheter was palpated. The Toth was moved up and down, and there were no defects felt in the bladder. The bladder was well below the area of concern. The right ureter was exposed and was seen peristalsing without difficulty, and no fluid was seen coming up with each peristalsis. She was given a 0.5 mL of fluorescein dye, and no fluorescein dye was seen intraabdominally. She did have the fluorescein dye seen in the Toth drainage bag. IMPRESSION: Probably no bladder or ureteral injury. RECOMMENDATIONS: Keep Toth catheter drainage until the urine completely clears. Thank you for this consultation. cc: MD Nolberto Zurita MD
[2019-12-10] MEDS: MEFOXIN 2 GM/NS 2 GM/50 ML IVPB IV SCH ×3 (01:01→17:25)
[2019-12-10] MEDS: ZOFRAN IV PRN ×2 (03:22→17:25)
[2019-12-10] MEDS: MORPHINE INJ PRN ×4 (03:22→19:19)
[2019-12-10] MEDS: ULTRAM PO PRN ×3 (06:25→23:38)
[2019-12-10] MEDS: FLAGYL PO SCH ×3 (06:26→21:29)
[2019-12-10] MEDS: D5 1/2 NS + KCL 20 MEQ 1,000 ML IV SCH ×2 (06:26→19:19)
[2019-12-10] MEDS: BENTYL PO SCH ×3 (06:26→17:25)
[2019-12-10] MEDS: HEPARIN SUBQ SCH ×3 (06:26→21:28)
[2019-12-10] MEDS: OFIRMEV 1000 MG/ISOTONIC SOLN 1,000 MG/100 ML BOTTLE IV SCH ×2 (06:46→11:02)
[2019-12-10 06:49] LABS: BASO# 0.03 X1000 (0.0-0.2); BASO% 0.2 % (0.0-0.8); EOS# 0.01 X1000 (0.0-0.7); EOS% 0.1 % (0.0-10.0); HEMATOCRIT 34.3 % (37.0-47.0); HEMOGLOBIN 10.5 g/dL (12.0-16.0); IMM GRAN# 0.04 X1000 (0.0-0.04); IMM GRAN% 0.3 % (0.0-0.5); LYMPH# 2.22 X1000 (1.2-3.4); MCH 25.2 PG (27-31); MCHC 30.6 g/dL (33-37); MCV 82.5 FL (81-99); MONO# 1.37 X1000 (0.11-0.59); MONO% 9.9 % (1.7-9.3); MPV 10.3 FL (7.4-10.4); NEUT# 10.19 X1000 (1.4-6.5); NEUT% 73.5 % (42.2-75.2); PLT 419 X1000 (130-400); RBC 4.16 XMIL (4.2-5.4); RDW 16.9 % (11.5-14.5); WBC 13.86 X1000 (4.8-10.8)
[2019-12-10 07:35] LABS: AGAP 7; BUN 8 mg/dL (8-22); CALCIUM 8.7 mg/dL (8.8-10.2); CHLORIDE 104 mmol/L (98-107); COSMO 280; CREATININE 0.6 mg/dL (0.5-0.9); ESTIMATED GFR > 60; GLUCOSE 112 mg/dL (70-104); POTASSIUM 4.4 mmol/L (3.5-5.1); SODIUM 141 mmol/L (136-145); TCO2 30 mmol/L (25-35)
[2019-12-10] MEDS ORDERED: LOTENSIN PO SCH (09:00)
--- NOTE | 2019-12-10 09:46 | GENERAL SURGERY PROGRESS NOTE ---
DATE: 12/10/2019 SUBJECTIVE: The patient seems to be doing okay. OBJECTIVE: Vital Signs: Patient is currently afebrile. Her vital signs are stable. General: No acute distress. Cardiovascular: Regular rate and rhythm. Lungs: Grossly clear. Abdomen: Soft, appropriately tender. Ostomy appears viable, just weeping at this point. POLLY drain with serosanguineous output. Toth catheter with clear output. ASSESSMENT AND PLAN: A 58-year-old female postoperative day #1 from takedown of colovesicular fistula, colocolonic fistula and coloenteric fistula with Renea's procedure. Postop state. At this time continue supportive care. We will continue antibiotics and try to get her to mobilize a little bit today. Since she had a bladder repair her Toth catheter will need to stay in place. We will keep her on Entereg. She is going to be started on heparin. We got her on IV fluids for right now. She does have a couple of areas of stricture in her small bowel secondary to Crohn's, which we will have to watch and see how she does, but hopefully she will be able to tolerate p.o. We will advance as tolerated. cc: MD Justin Zelaya MD
[2019-12-10] MEDS: VITAMIN C PO SCH (09:50)
[2019-12-10] MEDS: ENTEREG PO SCH ×2 (09:50→21:29)
[2019-12-10] MEDS: VICON-C PO SCH (09:51)
[2019-12-10] MEDS: VITAMIN D PO SCH (09:52)
[2019-12-10] MEDS: CYMBALTA PO SCH (09:52)
[2019-12-10] MEDS: BIOTIN PO SCH (09:52)
[2019-12-10] MEDS: PERIDEX MT SCH ×2 (09:54→21:29)
[2019-12-10] MEDS: CENTRUM SILVER PO SCH (12:13)
--- NOTE | 2019-12-10 12:34 | PROGRESS NOTE ---
DATE: 12/10/2019 SUBJECTIVE: Ms. George was admitted on 12/09/2019. She is a 58-year-old. This is a medical consultation. She had a direct admit from General Surgery with preoperative diagnosis of Crohn's disease and colovesicular fistula and had exploratory laparotomy, takedown of colovesicular fistula and a Renea's procedure with sigmoid resection and end colostomy, takedown of coloenteric fistula, and takedown of colocolonic fistula per Dr. Whittaker. She tolerated the procedure well. There was intraoperative consultation with Dr. Los Barrett concerning there might be a ureteral fistula. The bladder fistula had spontaneously repaired, and they did not see any drainage out of the floor seen in the intraabdominal aspect. They took down the fistula. Toth catheter was placed. She tolerated the procedure well. She was up walking this morning. She feels good. Blood pressure has been a little on the low side, so she was concerned that we did not give her any of her blood pressure medicines. OBJECTIVE: Vital Signs: She remains afebrile, temperature 98.1 degrees, pulse 89, respirations 20. Blood pressures of 139/95, 109/55, 109/57, 119/57. HEENT: Pupils are equal and round. Lungs: Clear in all lung palm. Cardiovascular: Regular rhythm and rate without murmur or S3. Abdomen: Soft. Skin: Warm and dry. Urine Output: Was 2200 mL. ASSESSMENT AND PLAN: 1. This is postoperative day 1 for takedown of colovesicular fistula, colocolonic fistula, coloenteric fistula with a Renea's procedure, end colostomy. She seems to be doing well. 2. History of hypertension. Blood pressures look good at the present. We will make sure we hold blood pressure medicines until the blood pressure comes up a little more. 3. Urinary tract infection. Aware. 4. History of glaucoma. ORDERS: She gets ascorbic acid 500 mg a day; Lotensin 10 mg p.o. daily, which we will hold; biotin 2500 mcg p.o. daily. She is on cefoxitin 2 grams IV every 8 hours and Cymbalta 60 mg a day, Flagyl 500 mg p.o. every 8 hours, multivitamin 1 a day, Ultram 50 mg p.o. every 6 hours, and she gets her eye drops, so I am going to I am going to stop the Lotensin for now. LABORATORY REVIEW: Review of her lab....... INCOMPLETE REPORT -- DICTATION ENDS HERE. cc: Justin Chao MD
[2019-12-11] MEDS: MEFOXIN 2 GM/NS 2 GM/50 ML IVPB IV SCH ×3 (00:27→17:07)
[2019-12-11] MEDS: MORPHINE INJ PRN ×4 (00:27→23:19)
[2019-12-11] MEDS: ZOFRAN IV PRN ×2 (03:42→08:55)
[2019-12-11] MEDS: HEPARIN SUBQ SCH ×3 (04:50→23:21)
[2019-12-11] MEDS: FLAGYL PO SCH ×3 (04:51→23:21)
[2019-12-11] MEDS: BENTYL PO SCH ×3 (06:26→17:07)
[2019-12-11] MEDS: BENADRYL PO PRN ×2 (09:15→14:34)
[2019-12-11] MEDS: D5 1/2 NS + KCL 20 MEQ 1,000 ML IV SCH (09:15)
[2019-12-11] MEDS: PROTONIX PO SCH (09:15)
--- NOTE | 2019-12-11 09:44 | PROGRESS NOTE ---
DATE: 12/11/2019 SUBJECTIVE: She has had some nausea. She has had some itching from the morphine and hurting a little more today. OBJECTIVE: Vital signs: Temp is 98.9 degrees, pulse 98, respirations 20, blood pressure 135/58. HEENT: Pupils are equal and round. Lungs: Lungs are clear in all lung palm. Cardiovascular: Regular rhythm and rate without murmur or S3. Abdomen: Abdomen is soft. Skin: Skin is warm and dry. Input and Output: Urine output is 2100 mL. ASSESSMENT AND PLAN: 1. Postoperative day 2, takedown of colovesicular fistula, colonic fistula, coloenteric fistula and Renea's procedure. Has end colostomy. Seems to be doing well. 2. History of hypertension. Her blood pressure seems to be doing well. 3. Urinary tract infection, has been treated. 4. History of glaucoma. 5. Nausea postsurgical. 6. Continue the Zofran. Let her have some Benadryl for itching which is associated with morphine. Also put her on a proton pump inhibitor. She takes Entereg which is alvimopan 12 mg p.o. b.i.d., ascorbic acid 500 mg a day, biotin 2500 mcg p.o. daily, cefoxitin 2 g IV q.8 hours, vitamin D 2000 units daily, D5 one half normal saline at 75 mL an hour, Cymbalta 60 mg p.o. daily, Flagyl 500 mg p.o. q.8 hours, Protonix 40 mg p.o. daily, Ultram 50 mg p.o. q.6 hours p.r.n., and takes timolol eye drops and dorzolamide drops in both eyes. cc: Justin Chao MD
[2019-12-11] MEDS: CYMBALTA PO SCH (10:26)
[2019-12-11] MEDS: ENTEREG PO SCH ×2 (10:26→23:20)
[2019-12-11] MEDS: CENTRUM SILVER PO SCH (10:27)
[2019-12-11] MEDS: BIOTIN PO SCH (10:27)
[2019-12-11] MEDS: VICON-C PO SCH (10:28)
[2019-12-11] MEDS: VITAMIN D PO SCH (10:28)
[2019-12-11] MEDS: VITAMIN C PO SCH (14:17)
--- NOTE | 2019-12-11 15:53 | GENERAL SURGERY PROGRESS NOTE ---
DATE: 12/11/2019 SUBJECTIVE: She is doing okay. Ostomy has had some output. Toth catheter is clear. POLLY drain serosanguineous/ her abdomen is soft. Incision is intact. No new labs this morning. I reviewed her orders. She has subcutaneous heparin ordered. She is on antibiotics, IV fluids, and Entereg. ASSESSMENT AND PLAN: A 58-year-old female status post low anterior takedown of numerous Crohn's fistulas. She has a Toth catheter in place for colovesicular fistula as well as POLLY drain. Encourage her to be out of bed and ambulating. We will follow her bowel function. cc: MD Justin Ga MD
[2019-12-11] MEDS: PERIDEX MT SCH ×2 (16:37→23:20)
[2019-12-11] MEDS: ULTRAM PO PRN (20:01)
[2019-12-12] MEDS: MEFOXIN 2 GM/NS 2 GM/50 ML IVPB IV SCH ×3 (02:00→16:58)
[2019-12-12] MEDS: ULTRAM PO PRN ×2 (02:10→08:20)
[2019-12-12] MEDS: MORPHINE INJ PRN ×4 (04:40→22:32)
[2019-12-12] MEDS: D5 1/2 NS + KCL 20 MEQ 1,000 ML IV SCH ×2 (04:57→10:03)
[2019-12-12] MEDS: BENADRYL PO PRN ×2 (06:11→21:01)
[2019-12-12] MEDS: PROTONIX PO SCH (06:11)
[2019-12-12] MEDS: BENTYL PO SCH ×3 (06:11→16:58)
[2019-12-12] MEDS: FLAGYL PO SCH ×3 (06:12→21:04)
[2019-12-12] MEDS: HEPARIN SUBQ SCH ×3 (06:12→21:01)
--- NOTE | 2019-12-12 09:47 | PROGRESS NOTE ---
DATE: 12/12/2019 SUBJECTIVE: Ms. George is feeling much better. She had a good night's sleep. She is not nauseated. She has been able to ambulate. She ate a little bit of her breakfast, about half a pancake. OBJECTIVE: Vital signs: Temperature 98.5 degrees, pulse 89, respirations 19, blood pressure 125/69. HEENT: Pupils are equal and round. Lungs: Lungs are clear in all lung palm. Cardiovascular: Regular rhythm and rate without murmur or S3. Intake and Output: Urine output is 4700 mL. ASSESSMENT AND PLAN: 1. Status post low anterior takedown of numerous Crohn's fistulas. Toth catheter is in place for colovesicular fistula as well as POLLY drain. She is making good progress. Pain control looks good. 2. She has a history of hypertension. Blood pressure, following. 3. Urinary tract infection, has been treated. 4. History of glaucoma. 5. She had some nausea yesterday which has resolved. 6. Continue physical therapy and encourage p.o. intake. 7. Review of her orders. She is still on Flagyl 500 mg p.o. q.8 hours, getting Bentyl 10 mg p.o. t.i.d. We got her on D5 half normal saline at 75 mL an hour, and she is getting cefoxitin 2 g q.8 hours. She has underlying Crohn's disease. She has lost a lot of weight in the last 2 years and continues to pursue a low carb diet. cc: Justin Chao MD
[2019-12-12] MEDS: BIOTIN PO SCH (10:04)
[2019-12-12] MEDS: CYMBALTA PO SCH (10:04)
[2019-12-12] MEDS: VITAMIN C PO SCH (10:05)
[2019-12-12] MEDS: VICON-C PO SCH (10:05)
[2019-12-12] MEDS: CENTRUM SILVER PO SCH (10:05)
[2019-12-12] MEDS: VITAMIN D PO SCH (10:05)
[2019-12-12] MEDS: PERIDEX MT SCH ×2 (10:06→21:01)
[2019-12-12] MEDS: ENTEREG PO SCH ×2 (10:06→21:03)
--- NOTE | 2019-12-12 15:04 | GENERAL SURGERY PROGRESS NOTE ---
DATE: 12/12/2019 SUBJECTIVE: Her ostomy is functioning. She feels much better. She is ambulating. She is tolerating some p.o. Her Toth is in place. It is functioning. There is clear urine. POLLY drain has minimal output of serosanguineous fluid. No new labs this morning. ASSESSMENT AND PLAN: A 58-year-old female status post low anterior with end colostomy for multiple Crohn's fistulas. We will keep her Toth and her drain in place for now. Will encourage her to be out of bed and ambulate, pulmonary toileting. cc: MD Justin Ga MD
[2019-12-12] MEDS: ZOFRAN IV PRN (15:24)
[2019-12-13] MEDS: MEFOXIN 2 GM/NS 2 GM/50 ML IVPB IV SCH ×3 (00:22→17:14)
[2019-12-13] MEDS: D5 1/2 NS + KCL 20 MEQ 1,000 ML IV SCH ×2 (00:22→14:19)
[2019-12-13] MEDS: BENADRYL PO PRN ×2 (01:37→21:21)
[2019-12-13] MEDS: HEPARIN SUBQ SCH ×3 (05:57→21:21)
[2019-12-13] MEDS: BENTYL PO SCH ×4 (05:58→17:14)
[2019-12-13] MEDS: FLAGYL PO SCH ×3 (05:58→21:21)
[2019-12-13] MEDS: PROTONIX PO SCH ×2 (05:58→07:54)
--- NOTE | 2019-12-13 06:02 | GENERAL SURGERY PROGRESS NOTE ---
DATE: 12/13/2019 SUBJECTIVE: Patient seems to be doing okay. She is having some ostomy output. She seems to be tolerating her diet. Her POLLY drain still has some fluid in it. OBJECTIVE: Vital Signs: Patient is currently afebrile. Her vital signs are stable. General: No acute distress. Cardiovascular: Regular rate and rhythm. Lungs: Grossly clear. Abdomen: Soft and appropriately tender. Incision is healing. Ostomy appears viable. POLLY drain with some fluid in it. : The Toth catheter looks clear. ASSESSMENT AND PLAN: A 58-year-old female currently postoperative day #4 from open Renea's procedure, takedown of colovesicular, colocolonic, and coloenteric fistula. Postoperative state. At this time, we will check her Chiki-Murphy drain for creatinine to see if she has any leak. We will keep her Toth catheter in place for right now. Hopefully, she is getting close to discharge because she seems to be tolerating it, but I want her to work with the colostomy and enterostomal therapy nurse today. cc: MD Justin Zelaya MD MTDD
--- NOTE | 2019-12-13 08:52 | PROGRESS NOTE ---
DATE: 12/13/2019 SUBJECTIVE: Ms. George had a good night, and no complaints. She has been able to eat pretty well, and she has been able to ambulate. Her strength is good. I think they are planning on doing some scans of her belly. Toth catheter is still in place. OBJECTIVE: Vital Signs: She remains afebrile, temperature 98.6 degrees, pulse 80, respirations 18, blood pressure 131/70. HEENT: Pupils are equal and round. Lungs: Clear in all lung palm anterolateral. Cardiovascular: Regular rhythm and rate without murmur or S3. Abdomen: Soft, nondistended. Extremities: No pedal edema. Urine output was 3600 mL. ASSESSMENT AND PLAN: 1. Postoperative day #4 for Renea's procedure, takedown of colovesicular and colocolonic and coloenteric fistula. Will get some scans today. Toth catheter is still in place. 2. History of hypertension. Blood pressures look well controlled. 3. Urinary tract infection has been treated. 4. History of glaucoma. REVIEW OF ORDERS: Continue physical therapy. She is still on Flagyl and Bentyl, and she is getting Entereg 12 mg p.o. b.i.d., ascorbic acid 500 mg a day, biotin 2500 mcg p.o. daily. She is on Protonix 40 mg daily, and she is getting her eyedrops for glaucoma. cc: Justin Chao MD
[2019-12-13 08:55] LABS: AGAP 9; BUN 6 mg/dL (8-22); CALCIUM 8.4 mg/dL (8.8-10.2); CHLORIDE 100 mmol/L (98-107); COSMO 275; CREATININE 0.5 mg/dL (0.5-0.9); ESTIMATED GFR > 60; GLUCOSE 95 mg/dL (70-104); POTASSIUM 4.2 mmol/L (3.5-5.1); SODIUM 139 mmol/L (136-145); TCO2 30 mmol/L (25-35)
[2019-12-13] MEDS: ULTRAM PO PRN (09:31)
[2019-12-13] MEDS: VITAMIN D PO SCH (09:32)
[2019-12-13] MEDS: BIOTIN PO SCH (09:33)
[2019-12-13] MEDS: VITAMIN C PO SCH (09:35)
[2019-12-13] MEDS: PERIDEX MT SCH ×2 (09:35→21:21)
[2019-12-13] MEDS: CENTRUM SILVER PO SCH (09:35)
[2019-12-13] MEDS: CYMBALTA PO SCH (09:35)
[2019-12-13] MEDS: VICON-C PO SCH (09:35)
[2019-12-13] MEDS: ENTEREG PO SCH ×2 (09:35→21:21)
[2019-12-13] MEDS: MORPHINE INJ PRN ×2 (12:26→21:11)
[2019-12-13 17:17] LABS: CREATININE BODY FLUID 0.6 mg/dL
[2019-12-13] MEDS: ZOFRAN IV PRN (22:56)
[2019-12-14] MEDS: MEFOXIN 2 GM/NS 2 GM/50 ML IVPB IV SCH ×3 (00:15→17:13)
[2019-12-14] MEDS: FLAGYL PO SCH ×3 (04:56→22:59)
[2019-12-14] MEDS: HEPARIN SUBQ SCH ×3 (04:56→22:58)
[2019-12-14] MEDS: D5 1/2 NS + KCL 20 MEQ 1,000 ML IV SCH ×2 (04:57→17:15)
--- NOTE | 2019-12-14 06:54 | GENERAL SURGERY PROGRESS NOTE ---
DATE: 12/14/2019 SUBJECTIVE: Patient doing okay. She has a little bit of nausea, but she seems to be doing all right. Ostomy output seems to be noted, but does not seem to be a lot. OBJECTIVE: Vital Signs: Patient is currently afebrile. Her vital signs stable. General: No acute distress. Cardiovascular: Regular rate and rhythm. Lungs: Grossly clear. Abdomen: Soft, appropriately tender. Ostomy with ostomy appliance in place. POLLY drain with minimal serosanguineous output. ASSESSMENT AND PLAN: A 58-year-old female postoperative day #5 from open Renea's procedure, takedown of colovesicular colocolonic and coloenteric fistula. Postop state. At this time we checked her Chiki-Murphy drain, did not have an elevated creatinine to suggest a urine leak. We will keep her Toth catheter in place right now. She has a little bit of nausea, so we will observe her for another day until she has officially tolerated p.o. Would like to see a little more ostomy output before we discharge her. Hopefully, we will be able to discharge her soon. cc: MD Justin Zelaya MD MTDD
[2019-12-14] MEDS: BENTYL PO SCH ×3 (07:34→17:15)
[2019-12-14] MEDS: PROTONIX PO SCH (07:34)
[2019-12-14] MEDS: ULTRAM PO PRN ×3 (08:04→22:59)
[2019-12-14] MEDS: VITAMIN C PO SCH (08:10)
[2019-12-14] MEDS: CYMBALTA PO SCH (08:10)
[2019-12-14] MEDS: ENTEREG PO SCH ×2 (08:10→22:58)
[2019-12-14] MEDS: VITAMIN D PO SCH (08:10)
[2019-12-14] MEDS: VICON-C PO SCH (08:11)
[2019-12-14] MEDS: BIOTIN PO SCH (08:11)
[2019-12-14] MEDS: PERIDEX MT SCH ×2 (08:12→23:00)
[2019-12-14] MEDS: CENTRUM SILVER PO SCH (08:14)
--- NOTE | 2019-12-14 14:01 | Diag Imaging Result Doc PS360 ---
CHEST-1 VIEW - 12/14/2019 INDICATION: sepsis protocol COMPARISON: 07/17/2019 FINDINGS: Lung volumes are critically low with scattered linear atelectasis. Heart size is normal. IMPRESSION: Critically low lung volumes. Electronically signed by Nathaniel Doll 12/14/2019 1:59 PM
[2019-12-14] MEDS: MORPHINE INJ PRN ×2 (14:41→19:28)
[2019-12-14] MEDS: ZOFRAN IV PRN ×2 (14:41→19:28)
[2019-12-14] MEDS: BENADRYL PO PRN ×2 (14:41→19:29)
[2019-12-14 15:09] LABS: BASO# 0.09 X1000 (0.0-0.2); BASO% 1.1 % (0.0-0.8); EOS# 0.46 X1000 (0.0-0.7); EOS% 5.4 % (0.0-10.0); HEMATOCRIT 34.9 % (37.0-47.0); HEMOGLOBIN 10.6 g/dL (12.0-16.0); IMM GRAN# 0.09 X1000 (0.0-0.04); IMM GRAN% 1.1 % (0.0-0.5); LYMPH# 1.93 X1000 (1.2-3.4); LYMPH% 22.6 % (20.5-51.1); MCH 24.9 PG (27-31); MCHC 30.4 g/dL (33-37); MCV 82.1 FL (81-99); MONO# 1.03 X1000 (0.11-0.59); MONO% 12.1 % (1.7-9.3); MPV 10.1 FL (7.4-10.4); NEUT# 4.94 X1000 (1.4-6.5); NEUT% 57.7 % (42.2-75.2); PLT 507 X1000 (130-400); RBC 4.25 XMIL (4.2-5.4); RDW 17.2 % (11.5-14.5); WBC 8.54 X1000 (4.8-10.8)
[2019-12-14 15:24] LABS: AGAP 8; ALB/GLOB RATIO 1.3; ALBUMIN 3.1 g/dL (3.5-5.0); ALKALINE PHOSPHATASE 56 U/L (32-104); BUN 6 mg/dL (8-22); CALCIUM 8.9 mg/dL (8.8-10.2); CHLORIDE 101 mmol/L (98-107); CK PROFILE 15 U/L (24-173); COSMO 279; CREATININE 0.5 mg/dL (0.5-0.9); ESTIMATED GFR > 60; GLUCOSE 104 mg/dL (70-104); GOT 25 U/L (10-30); GPT 14 U/L (10-36); POTASSIUM 4.4 mmol/L (3.5-5.1); SODIUM 141 mmol/L (136-145); TCO2 32 mmol/L (25-35); TOTAL PROTEIN 5.4 g/dL (6.3-8.3)
[2019-12-14 15:27] LABS: INR 1.13; PROTIME 14.6 Seconds (11.0-16.0); PTT 35.5 Seconds (22.3-41.8); TOTAL BILIRUBIN < 0.15 mg/dL (0.20-1.00)
[2019-12-14 15:49] LABS: URINE SOURCE CATH
[2019-12-14 16:05] LABS: BILIRUBIN URINE NEGATIVE (NEGATIVE); BLOOD URINE NEGATIVE (NEGATIVE); COLOR YELLOW; GLUCOSE URINE NEGATIVE (NEGATIVE); KETONE URINE NEGATIVE (NEGATIVE); LEUKOCYTES URINE NEGATIVE (NEGATIVE); NITRITE URINE NEGATIVE (NEGATIVE); PH URINE 6.5; PROTEIN URINE NEGATIVE (NEGATIVE); SP GRAVITY URINE 1.014; TURBIDITY URINE CLEAR (CLEAR); UROBILINOGEN URINE NORMAL (NORMAL)
[2019-12-14 16:07] LABS: UR EPITHELIAL CELLS <10 /HPF (<10); URINE BACTERIA NEGATIVE /HPF; URINE RBC <10 /HPF (<10); URINE WBC <10 /HPF (<10)
--- NOTE | 2019-12-14 18:28 | PROGRESS NOTE ---
DATE: 12/14/2019 SUBJECTIVE: Today, Ms. George refers to be doing a lot better. Still has some lower abdominal discomfort. OBJECTIVE: Vital signs: Blood pressure is 135/72, pulse of 93, respirations 18, temperature 98.4 degrees. General: Ms. George is a 58-year-old female. She is in bed, no distress. HEENT: Mucosa is pink and moist. Anicteric. Acyanotic. Neck: Supple. Chest: Clear to auscultation. Cardiovascular: Regular rate and rhythm. GI: Abdomen was soft. There is a new midline anterior abdominal wall surgical incision which is well affronted with clips. It looks remarkably clean. There is a left side ostomy, which has fecal material and there is a lower right-sided POLLY drain. Extremities: No pedal edema. 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 LABORATORY DATA: Shows normal WBC, some normocytic anemia. Chemistry is also reviewed and is unremarkable. Urine culture showing E coli. Blood culture still pending and abdominal culture is still pending. MEDICATIONS: Have been reviewed. No new changes. Patient is on cefoxitin. Today is day 5. ASSESSMENT: 1. Acute abdomen status post exploratory laparotomy with takedown of colovesicular fistula, colon enteric fistula and colocolonic fistula with also Renea procedure (sigmoid resection with end colostomy). 2. History of Crohn disease. Patient follows up with Dr. Dominguez. She used to be on Humira, but this has been withheld because of surgeries before. 3. Bilateral lower knee replacement noted. 4. Escherichia coli urinary tract infection. The patient continues to be on antimicrobial coverage. 5. Hypertension. Stable. cc: MD Justin Raygoza MD
[2019-12-14] MEDS: COSOPT OPHTH SOLN BOTH EYES SCH (21:00)
[2019-12-14] MEDS ORDERED: ZOFRAN IV PRN (21:49)
[2019-12-15] MEDS: MEFOXIN 2 GM/NS 2 GM/50 ML IVPB IV SCH ×2 (00:20→08:09)
[2019-12-15] MEDS: HEPARIN SUBQ SCH ×2 (05:32→13:03)
[2019-12-15] MEDS: FLAGYL PO SCH ×2 (05:33→13:03)
[2019-12-15] MEDS: BENTYL PO SCH ×4 (05:33→13:03)
[2019-12-15] MEDS: ULTRAM PO PRN ×2 (05:33→12:07)
[2019-12-15] MEDS: PROTONIX PO SCH ×2 (05:33→08:09)
[2019-12-15] MEDS: D5 1/2 NS + KCL 20 MEQ 1,000 ML IV SCH (05:38)
[2019-12-15] MEDS: PERIDEX MT SCH (09:29)
[2019-12-15] MEDS: CENTRUM SILVER PO SCH (09:29)
[2019-12-15] MEDS: VITAMIN D PO SCH (09:29)
[2019-12-15] MEDS: CYMBALTA PO SCH (09:29)
[2019-12-15] MEDS: VICON-C PO SCH (09:30)
[2019-12-15] MEDS: VITAMIN C PO SCH (09:30)
[2019-12-15] MEDS: BIOTIN PO SCH (09:30)
[2019-12-15] MEDS: ENTEREG PO SCH (09:30)
[2019-12-15] MEDS: COSOPT OPHTH SOLN BOTH EYES SCH (09:33)
--- NOTE | 2019-12-15 09:38 | GENERAL SURGERY PROGRESS NOTE ---
DATE: 12/15/2019 SUBJECTIVE: Patient seems to be doing well. She has been hemodynamically stable. OBJECTIVE: She is learning how to take care of her ostomy. She is having ostomy output. She has a Toth catheter in place. There is no blood. POLLY drain does not seem to have a urine leak, but does have some output. From a surgical point of view we will send her home today if okay with the hospitalist. FOLLOWUP: She will need to follow up with Dr. Barrett with Urology to have her Toth catheter removed later this week or early next week. cc: MD Justin Zelaya MD
[2019-12-15] MEDS: MORPHINE INJ PRN (09:39)
[2019-12-15] MEDS: BENADRYL PO PRN (09:40)
[2019-12-15 12:19] VITALS: BP 119/62
--- NOTE | 2019-12-16 15:02 | DISCHARGE SUMMARY ---
ADMISSION DATE: 12/09/2019 DISCHARGE DATE: 12/15/2019 DISPOSITION: Home. FOLLOWUP: 1. Dr. Bansal. 2. Dr. Whittaker. 3. Dr. Dominguez. 4. Dr. Barrett. CONSULTATIONS DURING THIS ADMISSION: 1. Urology was consulted. Patient was seen by Dr. Barrett. 2. GI was consulted. Patient was seen by Dr. Dominguez. 3. The hospitalist services were actually consulted by surgery. INVASIVE PROCEDURES DONE DURING THIS ADMISSION: An exploratory laparotomy with takedown of colovesicular fistula, Renea procedure, takedown of coloenteric fistula, and takedown of colocolonic fistula was done by Dr. Whittaker on 12/09/2019. PRESENTING COMPLAINT: Consulted for medical management. HISTORY OF PRESENTING COMPLAINT: Ms. George is a 58-year-old, female who is known to have Crohn's disease, frequent UTIs, and hypertension. 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 Got admitted by the surgery department mainly because she was having some GI related symptoms including stool in the vagina. A CAT scan was performed which showed inflamed thickened segment of the distal sigmoid colon with adjacent thickened loop of small bowel. Patient was electively admitted for outpatient colon resection and repair of the colovesicular fistula. Ms. George was electively admitted, had the surgery, and the hospitalist services were consulted for management of her other medical comorbidities. During the hospital course, she was started on IV antibiotics. She was adequately hydrated. NG tube was removed after the surgery. During the surgery, however, urology was also consulted to rule out any urological complications. Dr. Barrett evaluated the patient in that same surgical setting. As I said, postoperatively, Ms. George continues to improve remarkably well. All her blood cultures came back negative. Her urine did show E. coli which was, for the most part, pansensitive. She has been started on a regular diet. She is tolerating it well. This morning, surgery has evaluated her. They think that, from a surgical standpoint, she can be discharged and follow up with them. She also needs to follow up with urology. Ms. George has been switched to p.o. Augmentin. DISCHARGE MEDICATIONS: Include: 1. Biotin 250 mcg p.o. daily. 2. Vitamin D 2000 daily. 3. Multivitamins. 4. Duloxetine 60 mg p.o. daily. 5. Metronidazole 500 p.o. q.8 hourly. 6. Benazepril 10 mg p.o. daily. 7. Ondansetron 4 mg p.o. daily. 8. Augmentin 875 p.o. q.12. 9. Pantoprazole 40 mg p.o. daily. 10. Tramadol p.r.n. for pain. DISCHARGE DIAGNOSES: 1. Acute abdomen secondary to intra-abdominal Crohn's complications. The patient is status post exploratory laparotomy with takedown of colovesicular fistula, coloenteric fistula, and colocolonic fistula with Renea procedure. 2. Crohn' disease. The patient will follow up with Dr. Dominguez and resume her schedule with Jonathan whenever she is clinically stable. 3. Bilateral lower knee replacement, noted. 4. Escherichia coli urinary tract infection. 5. Hypertension. Time spent for discharge is 38 minutes. cc: MD Justin Raygoza MD
== END 2019-12-15 15:38 | disposition home health service (06) | DRG 330 ==
LOC: SURHOLD 05:24 → 4N 15:10
PROVIDERS: ADMIT Emergency Medicine; ATTEND Surgery
PROC: GE.COLS (2019-12-09 10:51)
PROC: [UNRECOGNIZED PROCEDURE] (2019-12-09 10:51)